=== PATIENT | male | born 1975 | race Caucasian/White ===

== ENCOUNTER → 2017-04-17 | Outpatient (CLI) | payer OTHER ==
--- NOTE | 2017-04-17 10:39 | MR ---
EXAMINATION TYPE: MR knee LT wo con DATE OF EXAM: 04/17/2017 COMPARISON: NONE HISTORY: Inner pain in left knee / Derangement TECHNIQUE: Multiplanar, multisequence imaging of the left knee is performed without IV contrast. FINDINGS: MEDIAL MENISCUS: There is a complex, predominantly radial tear of the posterior horn of the medial me niscus contiguous with the inferior articular surface with associated para meniscal cyst measuring 4 x 4 mm an adjacent cystic multiloculated areas either representing extension of the cyst or ganglion cysts. These measure 0.7 x 0.6 x 1.3 cm. The tear extends minimally into the meniscal body. No extens ion into the anterior horn or root. LATERAL MENISCUS: Anterior and posterior horns are intact without tear. CRUCIATE LIGAMENTS: The anterior and posterior cruciate ligaments are intact and unremarkable. COLLATERAL LIGAMENTS: The medial collateral ligament and lateral collateral ligament complex are inta ct. I signal is seen both deep and superficial to the medial collateral ligament without any disconti nuity in the medial collateral ligament suggestive of MCL bursitis. No abnormal signal within the MCL . EXTENSOR MECHANISM: Visualized quadriceps and patellar tendons are intact. EFFUSION: No significant suprapatellar joint effusion. POPLITEAL CYST: There is small amount of fluid is seen within the popliteal fossa between the medial head of the gastric anemias and semimembranosus relating to the tiny unilocular popliteal cyst. CARTILAGE: Heterogeneity seen within the patellar cartilage with focal fissure inferiorly at the molina llar apex and medial patellar facet and small area of undermining the lateral facet. No bone marrow e nalini or abnormal bone marrow signal is seen. BONE MARROW SIGNAL: No focal abnormal marrow signal is appreciated. IMPRESSION: 1. Complex, predominantly radial tear of the posterior horn of the medial meniscus with extent into t he meniscal body and adjacent parameniscal cyst measuring 4 x 4 millimeters. Directly adjacent to the parameniscal cyst another cystic fluid collection is seen measuring 0.7 x 0.6 x 1.3 cm that could re present to a ganglion cyst or extension of the para meniscal cyst. 2. Findings compatible with MCL bursitis without MCL tear. 3. Patellofemoral chondrosis with multifocal fissuring and single area of undermining. No abnormal edwardo ne marrow signal or osseous subchondral cysts.
== END | disposition home or self-care (01) ==
LOC: RADMRIMAIN 06:34
PROVIDERS: ATTEND Family Medicine
DX: M25.562 Pain in left knee (principal); M23.203 Derangement of unspecified medial meniscus due to old tear or injury, right knee; M94.20 Chondromalacia, unspecified site

== ENCOUNTER → 2018-01-09 | Outpatient (CLI) | payer OTHER ==
--- NOTE | 2018-01-09 16:28 | XR ---
EXAMINATION TYPE: XR sinus DATE OF EXAM: 01/09/2018 COMPARISON: None HISTORY: Chronic sinus congestion TECHNIQUE: 4 view sinuses FINDINGS: Paranasal sinuses are evaluated. The left frontal sinus is aplastic. The right frontal sinu s is severely hypoplastic. Mucosal thickening is suspected within the left maxillary sinus. Remaining paranasal sinuses appear c lear. The sella is unremarkable. IMPRESSION: 1. Retention cyst or mucosal thickening through the left maxillary sinus. 2. 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
== END | disposition home or self-care (01) ==
LOC: RADXRMAIN 12:56
PROVIDERS: ATTEND Family Medicine
DX: Q30.1 Agenesis and underdevelopment of nose (principal)
CPT/HCPCS: 70220

== ENCOUNTER 2018-05-29 20:05 | Observation (INO) | payer OTHER ==
[2018-05-29] MEDS ORDERED: MECLIZINE 12.5 MG TAB PO STA (20:49)
[2018-05-29] MEDS ORDERED: SODIUM CHLORIDE 0.9% 1,000 ML IV STA (20:49)
--- NOTE | 2018-05-29 21:00 | ED ---
Dizziness HPI - General Chief Complaint: Dizziness Stated Complaint: Dizzziness Time Seen by Provider: 05/29/18 20:33 Source: patient, EMS, RN notes reviewed Mode of arrival: EMS Limitations: no limitations - History of Present Illness Initial Comments: Is a 42-year-old male presents with complaints of dizziness she's been having is related or profound episode today with burning in his ear lightheadedness he also had some lightheadedness associated with the dizziness does get worse with movement of his head and eyes. He denies any recent cold or flu symptoms. He also has some chest tightness and pain to the distal volar aspect of his left wrist which was brief. No other complaints this time. He's not sure if it was associated with his normal anxiety issues or something else. He does not have any history of heart or lung problems he is aware of. MD Complaint: dizziness, other - Related Data Home Medications Medication Instructions Recorded Confirmed Diazepam [Valium] 1 - 2 tab PO Q12HR PRN 05/29/18 05/29/18 Vitmain Pack (Unknown) 1 pack PO DAILY 05/29/18 Allergies Allergy/AdvReac Type Severity Reaction Status Date / Time topiramate [From Topamax] Allergy Unknown Verified 05/29/18 20:08 Review of Systems ROS Statement: Those systems with pertinent positive or pertinent negative responses have been documented in the HPI. ROS Other: All systems not noted in ROS Statement are negative. Past Medical History Past Medical History: No Reported History Additional Past Medical History / Comment(s): chews tobacco History of Any Multi-Drug Resistant Organisms: None Reported Past Surgical History: Orthopedic Surgery Additional Past Surgical History / Comment(s): neck fusion, left knee surgery Past Psychological History: No Psychological Hx Reported Smoking Status: Never smoker Past Alcohol Use History: Occasional Past Drug Use History: None Reported General Exam - General Exam Comments Initial Comments: Is a well-developed well-nourished awake alert oriented 3 male Limitations: no limitations General appearance: alert, anxious Head exam: Present: atraumatic, normocephalic, normal inspection Eye exam: Present: normal appearance, PERRL, EOMI. Absent: scleral icterus, conjunctival injection, periorbital swelling ENT exam: Present: normal exam, mucous membranes moist Neck exam: Present: normal inspection, full ROM, other (No stridor JVD or bruits). Absent: tenderness, meningismus, lymphadenopathy Respiratory exam: Present: normal lung sounds bilaterally. Absent: respiratory distress, wheezes, rales, rhonchi, stridor Cardiovascular Exam: Present: regular rate, normal rhythm, normal heart sounds. Absent: systolic murmur, diastolic murmur, rubs, gallop, clicks GI/Abdominal exam: Present: soft, normal bowel sounds. Absent: distended, tenderness, guarding, rebound, rigid Rectal exam: Present: deferred Extremities exam: Present: normal inspection, full ROM, normal capillary refill. Absent: tenderness, pedal edema, joint swelling, calf tenderness Back exam: Present: normal inspection Neurological exam: Present: alert, oriented X3, CN II-XII intact, other (Producible dizziness to head turning and eye movement. No nystagmus is noted this time) Psychiatric exam: Present: normal affect, normal mood Skin exam: Present: warm, dry, intact, normal color. Absent: rash Course Vital Signs 05/29/18 05/29/18 05/29/18 20:08 20:27 21:00 Temperature 98.4 F Pulse Rate 84 81 84 Respiratory 18 18 18 Rate Blood Pressure 164/108 154/93 141/87 O2 Sat by Pulse 96 97 97 Oximetry 05/29/18 22:53 Temperature Pulse Rate 69 Respiratory 18 Rate Blood Pressure 139/77 O2 Sat by Pulse 98 Oximetry - Reevaluation(s) Reevaluation #1: 05/29/18 23:36 Reevaluation the patient reveals his dizziness has improved but he still has we describes as anterior chest pressure or tightness with some pain down his left wrist. Distal states she has some discomfort to his left jaw. Thus far the lab work is unremarkable EKG is demonstrating no acute ST-T wave changes. Patient did get some relief after nitroglycerin. I did have a long discussion with him he will be admitted for further evaluation today. On further questioning he does state he does get intermittent episodes of tightness around his chest up into his neck and jaw. EKG Findings - EKG Results: EKG: interpreted by JUD, sinus rhythm (Sinus rhythm rate of 86 WA interval 162 QRS duration 90 QT since QTC 366/437 evidence a left exodeviation no acute changes this is consistent with the EKG submitted by EMS.) Medical Decision Making - Medical Decision Making Patient did have improvement of his chest discomfort after oral nitroglycerin. He does relate that he's had episodes of chest pain and pain up into his neck and jaw. He has minimal risk factors at this time though the presentation is consistent with ACS. I did discuss case with him and with Dr. Amaral the patient will be admitted for evaluation of chest pain. The dizziness seems to have improved this is likely secondary to benign positional vertigo. - Lab Data Result diagrams: 05/29/18 20:15 05/29/18 20:15 Lab Results 05/29/18 05/29/18 05/29/18 Range/Units 20:15 20:15 20:15 WBC 7.5 (3.8-10.6) k/uL RBC 5.08 (4.30-5.90) m/uL Hgb 15.9 (13.0-17.5) gm/dL Hct 47.6 (39.0-53.0) % MCV 93.6 (80.0-100.0) fL MCH 31.2 (25.0-35.0) pg MCHC 33.4 (31.0-37.0) g/dL RDW 12.3 (11.5-15.5) % Plt Count 336 (150-450) k/uL Neutrophils % 53 % Lymphocytes % 33 % Monocytes % 8 % Eosinophils % 3 % Basophils % 1 % Neutrophils # 4.0 (1.3-7.7) k/uL Lymphocytes # 2.5 (1.0-4.8) k/uL Monocytes # 0.6 (0-1.0) k/uL Eosinophils # 0.2 (0-0.7) k/uL Basophils # 0.1 (0-0.2) k/uL Sodium 138 (137-145) mmol/L Potassium 4.6 (3.5-5.1) mmol/L Chloride 105 (98-107) mmol/L Carbon Dioxide 23 (22-30) mmol/L Anion Gap 10 mmol/L BUN 9 (9-20) mg/dL Creatinine 1.00 (0.66-1.25) mg/dL Est GFR (CKD-EPI)AfAm >90 (>60 ml/min/1.73 sqM) Est GFR (CKD-EPI)NonAf >90 (>60 ml/min/1.73 sqM) Glucose 105 H (74-99) mg/dL Calcium 10.0 (8.4-10.2) mg/dL Magnesium 2.1 (1.6-2.3) mg/dL Total Bilirubin 0.9 (0.2-1.3) mg/dL AST 49 (17-59) U/L ALT 104 H (21-72) U/L Alkaline Phosphatase 57 (38-126) U/L Total Creatine Kinase 111 (55-170) U/L CK-MB (CK-2) 0.4 (0.0-2.4) ng/mL CK-MB (CK-2) Rel Index 0.4 Troponin I <0.012 (0.000-0.034) ng/mL Total Protein 7.4 (6.3-8.2) g/dL Albumin 4.6 (3.5-5.0) g/dL - Radiology Data Radiology results: report reviewed (I did review the imaging and report no acute findings), image reviewed Critical Care Time Critical Care Time: Yes Critical Care Time: 31 minutes of critical care time which includes initial presentation with history physical labs x-rays several reevaluation the patient to responsive therapy. Reevaluation the patient after chest pain reported in evaluation after nitroglycerin. Discussion the patient regarding the findings discussed with Dr. Amaral regarding findings admission orders and documentation of the above Disposition Clinical Impression: Acute coronary syndrome, Chest pain, Benign positional vertigo Disposition: ADMITTED IP TO THIS [facility] Condition: Fair Referrals: Yaniv Bloom DO [Primary Care Provider] - 1-2 days
[2018-05-29 21:01] LABS: Basophils # (A) 0.1 k/uL (0-0.2); Basophils % (A) 1 %; Eosinophils # (A) 0.2 k/uL (0-0.7); Eosinophils % (A) 3 %; HCT 47.6 % (39.0-53.0); HGB 15.9 gm/dL (13.0-17.5); Lymphocytes # (A) 2.5 k/uL (1.0-4.8); Lymphocytes % (A) 33 %; MCH 31.2 pg (25.0-35.0); MCHC 33.4 g/dL (31.0-37.0); MCV 93.6 fL (80.0-100.0); Mean Platelet Volume 7.3; Monocytes # (A) 0.6 k/uL (0-1.0); Monocytes % (A) 8 %; Neutrophils % (A) 53 %; Platelet Count 336 k/uL (150-450); RBC 5.08 m/uL (4.30-5.90); RDW 12.3 % (11.5-15.5); WBC 7.5 k/uL (3.8-10.6)
[2018-05-29 21:11] LABS: ALT 104 U/L (21-72); AST 49 U/L (17-59); Albumin 4.6 g/dL (3.5-5.0); Alkaline Phosphatase 57 U/L (38-126); Anion Gap 10 mmol/L; Blood Urea Nitrogen 9 mg/dL (9-20); Carbon Dioxide 23 mmol/L (22-30); Chloride 105 mmol/L (98-107); Glucose 105 mg/dL (74-99); Magnesium 2.1 mg/dL (1.6-2.3); Potassium 4.6 mmol/L (3.5-5.1); Sodium 138 mmol/L (137-145); Total Bilirubin 0.9 mg/dL (0.2-1.3); Total Protein 7.4 g/dL (6.3-8.2)
[2018-05-29 21:14] LABS: Creatine Kinase 111 U/L (55-170)
[2018-05-29 21:26] LABS: Creatine Kinase MB 0.4 ng/mL (0.0-2.4); Troponin I <0.012 ng/mL (0.000-0.034)
--- NOTE | 2018-05-29 22:44 | CT ---
EXAM: CT Head Without Intravenous Contrast CLINICAL HISTORY: Pain TECHNIQUE: Axial computed tomography images of the head/brain without intravenous contrast. CTDI is 0.085, 0.085, 49.1 mGy and DLP is 1160.4 mGy-cm. This CT exam was performed using one or more of the following dose reduction techniques: automated exposure control, adjustment of the mA and/or kV according to patient size, and/or use of iterative reconstruction technique. COMPARISON: No relevant prior studies available. FINDINGS: Brain: Unremarkable. No acute hemorrhage, large hypodensity, or significant mass effect. Ventricles: Unremarkable. No ventriculomegaly. Bones/joints: Unremarkable. No acute fracture. Soft tissues: Unremarkable. Sinuses: Unremarkable. Mastoid air cells: Unremarkable. IMPRESSION: No acute intracranial abnormality.
[2018-05-29] MEDS ORDERED: NITROGLYCERIN SL TABS 0.4 MG TAB SUBLINGUAL STA (22:48)
[2018-05-29] MEDS ORDERED: NITROGLYCERIN SL TABS 0.4 MG TAB SUBLINGUAL PRN (23:45)
[2018-05-29] MEDS ORDERED: HEPARIN SODIUM,PORCINE 5,000 UNIT/ML 1 ML VIAL IV ONE (23:45)
[2018-05-29] MEDS ORDERED: SODIUM CHLORIDE 0.9% 1,000 ML IV SCH (23:45)
[2018-05-29] MEDS ORDERED: HEPARIN SOD,PORK IN 0.45% NACL 25,000 UNIT in 0.45% NACL 1 250ML.BAG IV SCH (23:45)
[2018-05-29] MEDS ORDERED: MECLIZINE 12.5 MG TAB PO PRN (23:47)
[2018-05-29] MEDS ORDERED: ACETAMINOPHEN TAB 325 MG TAB PO PRN (23:48)
--- NOTE | 2018-05-30 00:49 | P.HPIM ---
History of Present Illness H&P Date: 05/29/18 Chief Complaint: dizziness 42-year-old male with a past medical history of anxiety presents to the ER via private vehicle with complaints of dizziness increasing fatigue intermittently for the last week. Today in particular the patient reported a profound episode today with burning in his ear with lightheadedness and nausea, he also had some lightheadedness associated with the dizziness does get worse with movement of his head and eyes. He denies any recent cold or flu symptoms, denies any room spinning sensation. He also has some mild chest tightness with radiation into his neck and pain to the distal volar aspect of his left wrist which was brief. Patient reports a history of neck surgery and has had cervical fusions and has ongoing issues with his neck due to muscle spasms. No other complaints this time. He's not sure if it was associated with his normal anxiety issues or possible panic attack or something else. He does not have any history of heart or lung problems he is aware of, patient denies any first- degree relatives with a history of premature coronary disease. The patient is a former smoker and continues to chew tobacco In the ER the patient had a conference of workup, admission labs were otherwise unremarkable specifically his troponin was less than 0.012, EKG showed sinus mechanism without any suggestive of acute ischemia. CT of the head was done was negative for any acute intracranial pathology Patient was recommended for admission to rule out ACS Review of Systems Pertinent positives per HPI, all other of systems otherwise negative Past Medical History Past Medical History: No Reported History Additional Past Medical History / Comment(s): chews tobacco History of Any Multi-Drug Resistant Organisms: None Reported Past Surgical History: Orthopedic Surgery Additional Past Surgical History / Comment(s): neck fusion, left knee surgery Past Psychological History: No Psychological Hx Reported Smoking Status: Never smoker Past Alcohol Use History: Occasional Past Drug Use History: None Reported Medications and Allergies Home Medications Medication Instructions Recorded Confirmed Type Diazepam [Valium] 1 - 2 tab PO Q12HR PRN 05/29/18 05/29/18 History Vitmain Pack (Unknown) 1 pack PO DAILY 05/29/18 History Allergies Allergy/AdvReac Type Severity Reaction Status Date / Time topiramate [From Topamax] Allergy Unknown Verified 05/29/18 20:08 Physical Exam Vitals: Vital Signs Temp Pulse Resp BP Pulse Ox 03/22/19 22:53 69 18 139/77 98 05/29/18 21:00 84 18 141/87 97 05/29/18 20:27 81 18 154/93 97 05/29/18 20:08 98.4 F 84 18 164/108 96 Intake and Output 05/29/18 05/29/18 05/30/18 14:59 22:59 06:59 Other: Weight 117.208 kg Constitutional: No acute distress, conversant, pleasant Eyes: Anicteric sclerae, moist conjunctiva, no lid-lag, PERRLA ENMT: NC/AT,Oropharynx clear, no erythema, exudates Neck:Supple, FROM, no masses, or JVD, No carotid bruits; No thyromegaly Lungs: Clear to auscultation, Clear to percussion, Normal respiratory effort, no accessory muscle use Cardiovascular: Heart regular in rate and rhythm, No murmurs, gallops, or rubs no peripheral edema Abdominal: Soft Nontender, nom distended, no guarding, no rebound or rigidity, Normoactive bowel sounds No hepatomegaly, No splenomegaly, No palpable mass No abdominal wall hernia noted Skin: Normal temperature, tone, texture, turgor, No induration No subcutaneous nodules, No rash, lesions, No ulcers Extremities:No digital cyanosis No clubbing, Pedal pulses intact and symmetrical Radial pulses intact and symmetrical Normal gait and station, No calf tenderness Psychiatric: Alert and oriented to person, place and time, Appropriate affect Intact judgement Neuro: Muscles Strength 5/5 in all 4 extremities, Sensation to light touch sneha ssly present throughout, Cranial nerves II-XII grossly intact. No focal sensory deficits, negative [place] Results CBC & Chem 7: 05/29/18 20:15 05/29/18 20:15 Labs: Abnormal Lab Results - Last 24 Hours (Table) 05/29/18 Range/Units 20:15 Glucose 105 H (74-99) mg/dL ALT 104 H (21-72) U/L Assessment and Plan (1) Atypical chest pain Current Visit: Yes Status: Acute Code(s): R07.89 - OTHER CHEST PAIN SNOMED Code(s): 749228325 (2) Dizziness Current Visit: Yes Status: Acute Code(s): R42 - DIZZINESS AND GIDDINESS SNOMED Code(s): 264193311 (3) Elevated blood pressure reading without diagnosis of hypertension Current Visit: Yes Status: Acute Code(s): R03.0 - ELEVATED BLOOD-PRESSURE READING, W/O DIAGNOSIS OF HTN SNOMED Code(s): 500355126 (4) Former smoker Current Visit: Yes Status: Acute Code(s): Z87.891 - PERSONAL HISTORY OF NICOTINE DEPENDENCE SNOMED Code(s): 6268557 (5) Anxiety Current Visit: Yes Status: Acute Code(s): F41.9 - ANXIETY DISORDER, UNSPECIFIED SNOMED Code(s): 25738464 Plan: The patient is placed in observation anticipate a less than 2 midnight stay after presenting with atypical chest pain and dizziness, workup so far has been negative. EKG indicated sinus mechanism without any acute ischemia, and troponin was less than 0.012. We'll continue to trend his troponins every 6 hours 2. the patient was started on routine chest pain orders and received aspirin in the ED and was started on IV heparin And his chest discomfort was diminished after receiving nitroglycerin. We'll plan to continue these orders pending cardiology consultation. As mentioned CT of the head was negative for any acute intracranial pathology, dizziness possibly related to vertical we'll continue Antivert. We'll also obtain a lipid panel, chest x-ray and continue to monitor his clinical course. CODE STATUS: Full code discuss plan of care with : Patient anticipated discharge: 1-2 days
[2018-05-30 01:00] VITALS: BMI 34.0
[2018-05-30] MEDS: NITROGLYCERIN OINT 1 INCH/GM PACKET TOPICAL SCH ×3 (01:13→11:27)
--- NOTE | 2018-05-30 06:46 | XR ---
EXAMINATION TYPE: XR chest 2V DATE OF EXAM: 05/30/2018 HISTORY: chest pain. REFERENCE: NONE. FINDINGS: There has been a previous ACDF of the lower cervical spine. The lungs are clear. Pleural spaces are clear. The heart is not enlarged. IMPRESSION: NO ACTIVE CARDIOPULMONARY ABNORMALITY.
[2018-05-30 07:16] LABS: Cholesterol 256 mg/dL (<200); HDL Cholesterol 35 mg/dL (40-60)
[2018-05-30 07:23] LABS: Triglycerides 781 mg/dL (<150)
[2018-05-30] MEDS ORDERED: ASPIRIN 325 MG TAB PO SCH (09:00)
[2018-05-30] MEDS ORDERED: FENOFIBRATE 54 MG TAB PO SCH (09:15)
[2018-05-30 09:28] VITALS: PULSE 73; TEMP 98
[2018-05-30 12:04] VITALS: BP 140/76; RESP 18
--- NOTE | 2018-05-30 15:25 | P.DS ---
Providers Date of admission: 05/29/18 23:48 Expected date of discharge: 05/30/18 Attending physician: Bk Amaral MD Consults: 05/29/18 23:45 Consult Physician Urgent Consulting Provider: Dashawn Sorto Consult Reason/Comments: Chest pain Do you want consulting provider notified?: Yes Primary care physician: [facility] Course: The patient is a 42-year-old male with a PMH of anxiety who presented to the ED for episodes of episodes of chest pressure, shortness of breath, nausea, dry mouth, and a sense of impending doom. The patient notes that he has severed with anxiety for many decades and over the past few years believes that he might have developed panic attacks. He notes that the episode prior to his presentation was particularly severe and he felt that it warranted getting an evaluation. In the ED, the patient underwent a comprehensive workup with troponins less than 0.012, with EKG showing normal sinus rhythm with no ischemic changes. CT head was unremarkable and the patient was admitted under observation for cardiology evaluation. The patient was evaluated by cardiology who recommended that the patient's symptoms are likely secondary to his panic attacks and that he is cleared for discharge with a follow-up with outpatient PCP and cardiology clinic. Of note, the patient was noted to have significantly elevated triglycerides and was started on fenofibrate. Furthermore, the patient was also advised to undergo a fasting A1c and a repeat lipid panel testing as outpatient. Physical Examination General: Non-toxic, in no acute distress, appears stated age, normal weight HEENT: NC/AT, anicteric sclerae, moist conjunctiva, no lid-lag, PERRLA Cardiovascular: S1/S2 wnl, no murmurs, rubs, or gallops Lungs: Clear to auscultation, normal respiratory effort, no accessory muscle use Abdominal: Soft, non-tender, non-distended, no guarding, rebound, or rigidity Skin: Warm, dry Extremities: No edema or contractures Psychiatric: Alert and oriented to person, place and time, appropriate affect Neuro: CN II-XII grossly intact, Strength 5/5 in all 4 extremities, Speech intact, Sensation to light touch grossly intact throughout Discharge diagnosis: Panic attack disorder; Hypertriglyceridemia A total of 40 minutes of time were spent preparing this complex discharge [facility]. Pertinent Studies: As per HPI Procedures: As per HPI Patient Condition at Discharge: Fair Plan - Discharge Summary Discharge Rx Participant: No New Discharge Prescriptions: New Fenofibrate [Lofibra] 54 mg PO DAILY #30 tab Continue Vitmain Pack (Unknown) 1 pack PO DAILY Diazepam [Valium] 1 - 2 tab PO Q12HR PRN PRN Reason: Anxiety Discharge Medication List Diazepam [Valium] 1 - 2 tab PO Q12HR PRN 05/29/18 [History] Vitmain Pack (Unknown) 1 pack PO DAILY 05/29/18 [History] Fenofibrate [Lofibra] 54 mg PO DAILY #30 tab 05/30/18 [Rx] Follow up Appointment(s)/Referral(s): Yaniv Bloom DO [Primary Care Provider] - 1-2 days Patient Instructions/Handouts: Angina (DC) Discharge Disposition: HOME SELF-CARE
--- NOTE | 2018-05-30 17:41 | CONS ---
CONSULTATION Lorenzo Hays is a 42-year-old gentleman with a history of some alcohol binge drinking of 6 to 7 beers every 2-3 days. He also has had a previous cervical spine surgery. He was watching some movies and then he felt some tingling in the left wrist area, then had some tightness in the chest and came into the hospital. The patient feels he felt very panicky and he had some pain related to his cervical spine surgery issues as well and some dizziness and felt anxious with it. He has no further pain. He is resting comfortably. His troponins are normal. EKG is unremarkable. He is resting comfortably without symptoms. His dizziness has also resolved and his tingling in the left wrist area has resolved. His symptoms were very atypical and do not suggest any angina. PAST MEDICAL HISTORY: Remarkable for cervical spine surgery, left knee surgery. He has no hypertension or diabetes. MEDICATIONS: He is takes occasionally Valium for his neck discomfort. ALLERGIES: HE IS ALLERGIC TO . EXAMINATION: On examination blood pressure is 130/80, pulse rate is 80 per minute and regular. HEENT unremarkable. Fundus was not examined by me. Neck is supple. There is no JVD. I do not hear a carotid bruit. Heart exam reveals S1, S2 heard normally. No rub, murmur or gallop lungs are clear. Abdomen is soft, nontender. Lower extremity with normal pulses. No edema. Central nervous system is normal. EKG revealed a sinus mechanism, no acute changes. LABORATORY DATA: Suggests that troponins are normal. Triglycerides are quite high. This could be related to alcoholism or could also be related to any blood sugar issues, but the patient claims that he is not a diabetic. IMPRESSION: 1. Atypical chest pain. 2. Hypercholesterolemia. 3. History of cervical spine surgery. RECOMMENDATION: I am recommending fenofibrate 50 mg daily. Advised the patient regarding alcohol cessation. Advised that he should have a hemoglobin A1C also as an outpatient. When he is feeling better and more stable, we will do a stress test as outpatient. Advised to call me and we will try and see him in next to 2-3 weeks, but to call me sooner if he has a question, concern, problem or symptoms. Patient can be discharged today. Thank you very much for the consult. MMNAREN / IJN: [id number] /
[2018-05-30 22:40] LABS: Hemoglobin A1C 5.7 % (4.0-6.0)
== END 2018-05-30 13:09 | disposition home or self-care (01) ==
LOC: EC 20:05 → 3SCARD 23:48
PROVIDERS: ADMIT Family Medicine; ATTEND Family Medicine
DX: F41.0 Panic disorder [episodic paroxysmal anxiety] (principal); E78.1 Pure hyperglyceridemia; E78.00 Pure hypercholesterolemia, unspecified; R03.0 Elevated blood-pressure reading, without diagnosis of hypertension; M62.838 Other muscle spasm; Z98.1 Arthrodesis status; Z87.891 Personal history of nicotine dependence; F17.220 Nicotine dependence, chewing tobacco, uncomplicated; Z88.8 Allergy status to other drugs, medicaments and biological substances
CPT/HCPCS: 96366; 96376; 96361; 96365; 99291; 36415; 93005; 80061; 80053; 82550; 82553; 83735; 82947; 84484 ×2; 85025; 85730; 83036; 71046; 70450; G0378 ×2; J1644 ×2

== ENCOUNTER 2018-11-26 18:57 | Emergency (ER) | payer OTHER ==
[2018-11-26 19:04] VITALS: RESP 18; TEMP 98
[2018-11-26] MEDS ORDERED: SODIUM CHLORIDE 0.9% 1,000 ML IV STA (19:41)
[2018-11-26] MEDS ORDERED: diphenhydrAMINE 50 MG/ML 1 ML VIAL IVP STA (19:41)
[2018-11-26] MEDS ORDERED: DEXAMETHASONE SOD PHOSPHATE 10 MG/ML 1 ML VIAL IV STA (19:41)
[2018-11-26] MEDS ORDERED: METOCLOPRAMIDE 5 MG/ML 2 ML VIAL IVP STA (19:41)
[2018-11-26] MEDS ORDERED: MAGNESIUM SULFATE-D5W PMX 1 GM in DEXTROSE/WATER 1 100ML.BAG IVPB ONE (19:42)
[2018-11-26 19:58] LABS: Basophils # (A) 0.1 k/uL (0-0.2); Basophils % (A) 1 %; Eosinophils # (A) 0.2 k/uL (0-0.7); Eosinophils % (A) 2 %; HCT 46.5 % (39.0-53.0); HGB 15.8 gm/dL (13.0-17.5); Lymphocytes # (A) 2.5 k/uL (1.0-4.8); Lymphocytes % (A) 22 %; MCH 31.1 pg (25.0-35.0); MCHC 34.1 g/dL (31.0-37.0); MCV 91.3 fL (80.0-100.0); Mean Platelet Volume 7.1; Monocytes # (A) 0.7 k/uL (0-1.0); Monocytes % (A) 6 %; Neutrophils # (A) 7.8 k/uL (1.3-7.7); Neutrophils % (A) 69 %; Platelet Count 368 k/uL (150-450); RBC 5.09 m/uL (4.30-5.90); RDW 12.3 % (11.5-15.5); WBC 11.3 k/uL (3.8-10.6)
[2018-11-26 20:00] LABS: ALT 48 U/L (21-72); AST 28 U/L (17-59); African American GFR (CKD) >90 (>60 ml/min/1.73 sqM); Albumin 4.7 g/dL (3.5-5.0); Alkaline Phosphatase 55 U/L (38-126); Anion Gap 12 mmol/L; Blood Urea Nitrogen 11 mg/dL (9-20); Calcium 9.8 mg/dL (8.4-10.2); Carbon Dioxide 24 mmol/L (22-30); Chloride 102 mmol/L (98-107); Glucose 184 mg/dL (74-99); Sodium 138 mmol/L (137-145); Total Protein 7.3 g/dL (6.3-8.2)
--- NOTE | 2018-11-26 20:07 | CT ---
EXAMINATION TYPE: CT brain wo con DATE OF EXAM: 11/26/2018 COMPARISON: 05/29/2018 HISTORY: HEADACHE FELT IN FRONTAL REGION CT DLP: 1141.4 mGycm. Automated Exposure Control for Dose Reduction was Utilized. TECHNIQUE: CT scan of the head is performed without contrast. FINDINGS: Ventricles and sulci appear normal. There is no mass effect nor midline shift. There is no sign of intracranial hemorrhage. The calvarium is intact. IMPRESSION: Normal head CT scan. No change.
[2018-11-26] MEDS ORDERED: ONDANSETRON 4 MG ODT STARTER PACK 2 TAB BTL PO STA (20:50)
--- NOTE | 2018-11-26 20:50 | ED ---
General Adult HPI - General Chief complaint: Dizziness Stated complaint: Headache, dizzy Time Seen by Provider: 11/26/18 19:05 Source: patient Mode of arrival: ambulatory Limitations: no limitations - History of Present Illness Initial comments: The patient is a 43-year-old male with past medical history of chronic back pain who presents emergency Department with reported headache and nausea. The patient reports that he awoke this morning with a frontal headache. It is described as an 8 out of 10 pressure sensation. It is not the worse headache of his life. States he will chronically have headaches because of his neck pain. States that this headache feels different and is in a different location. Denies that it was sudden onset or maximal intensity. He did not take any medications for his symptoms. Denies any associated cold-like symptoms. No nasal congestion, cough or ear pain. Denies photophobia. No midline neck pain. Admits to his chronic left-sided neck pain. No recent blunt head trauma or chiropractic manipulations. No visual changes. No unilateral numbness or weakness. No photophobia. The patient reports that he associated nausea with 2 episodes of vomiting. After the vomiting he was able to hold down food without difficulty. He still remains nauseated though. He reports to a presyncopal sensation. No vertiginous symptoms. Denies any hearing changes. No report of confusion or slurred speech. There are no other alleviating, Percepting or modifying factors - Related Data Home Medications Medication Instructions Recorded Confirmed Multivitamins, Thera [Multivitamin 1 tab PO DAILY 11/26/18 11/26/18 (formulary)] Allergies Allergy/AdvReac Type Severity Reaction Status Date / Time topiramate [From Topamax] Allergy Unknown Verified 11/26/18 19:12 Review of Systems ROS Statement: Those systems with pertinent positive or pertinent negative responses have been documented in the HPI. ROS Other: All systems not noted in ROS Statement are negative. Past Medical History Past Medical History: No Reported History Additional Past Medical History / Comment(s): chews tobacco History of Any Multi-Drug Resistant Organisms: None Reported Past Surgical History: Orthopedic Surgery Additional Past Surgical History / Comment(s): neck fusion, left knee surgery Past Anesthesia/Blood Transfusion Reactions: No Reported Reaction Past Psychological History: Anxiety Smoking Status: Current some day smoker Past Alcohol Use History: Occasional Past Drug Use History: Marijuana General Exam Limitations: no limitations General appearance: alert, in no apparent distress Head exam: Present: atraumatic, normocephalic, normal inspection Eye exam: Present: normal appearance, PERRL, EOMI. Absent: scleral icterus, conjunctival injection, periorbital swelling ENT exam: Present: normal exam, mucous membranes moist Neck exam: Present: normal inspection. Absent: tenderness, meningismus, lymphadenopathy Respiratory exam: Present: normal lung sounds bilaterally. Absent: respiratory distress, wheezes, rales, rhonchi, stridor Cardiovascular Exam: Present: normal rhythm, tachycardia, normal heart sounds. Absent: systolic murmur, diastolic murmur, rubs, gallop, clicks GI/Abdominal exam: Present: soft, normal bowel sounds. Absent: distended, tenderness, guarding, rebound, rigid Extremities exam: Present: normal inspection, full ROM, normal capillary refill. Absent: tenderness, pedal edema, joint swelling, calf tenderness Back exam: Present: normal inspection Neurological exam: Present: alert, oriented X3, CN II-XII intact, other (finger to nose symmetric bilaterally. Negative pronator drift. No ataxia with ambulation) Psychiatric exam: Present: normal affect, normal mood Skin exam: Present: warm, dry, intact, normal color. Absent: rash Course Vital Signs 11/26/18 11/26/18 19:00 21:17 Temperature 98 F 98 F Pulse Rate 110 H 82 Respiratory 18 18 Rate Blood Pressure 128/82 127/74 O2 Sat by Pulse 98 96 Oximetry EKG Findings - EKG Comments: EKG Findings:: EKG demonstrates a normal sinus rhythm with a ventricular rate of 97. CO interval 160. QRS 80. QTC 449. There are no acute ST segment eleva tions or depressions concerning for ischemic changes Medical Decision Making - Medical Decision Making Upon arrival the patient is placed into room 5. He is hooked up to continuous pulse ox and cardiac monitoring. A thorough history and physical exam was performed. A 12-lead EKG was performed which demonstrates a sinus rhythm. Laboratory studies were conducted and the patient was sent for a CT of his brain. Upon return of the results I did discuss them with the patient. White blood cell count is 11.3. Glucose 184. CT of the patient's brain demonstrates no acute findings. The patient was given 1 g of magnesium, 25 mg of Benadryl, 1 0 mg of Reglan and 10 mg of Decadron. I did go and reevaluate the patient he states that his nausea has improved. He still has a 2 out of 10 headache however he does believe it is because he is hungry and wants to eat. I did offer the patient something by mouth however he states he wants to go home. I discussed diagnoses, differential and treatment options. The patient is to follow-up with his primary care physician within 2-4 days. If he has any new or worsening symptoms he is to return to the emergency room. The patient was discharged in stable condition - Lab Data Result diagrams: 11/26/18 19:22 11/26/18 19: Lab Results 11/26/18 11/26/18 Range/Units : 19: WBC 11.3 H (3.8-10.6) k/uL RBC 5.09 (4.30-5.90) m/uL Hgb 15.8 (13.0-17.5) gm/dL Hct 46.5 (39.0-53.0) % MCV 91.3 (80.0-100.0) fL MCH 31.1 (25.0-35.0) pg MCHC 34.1 (31.0-37.0) g/dL RDW 12.3 (11.5-15.5) % Plt Count 368 (150-450) k/uL Neutrophils % 69 % Lymphocytes % 22 % Monocytes % 6 % Eosinophils % 2 % Basophils % 1 % Neutrophils # 7.8 H (1.3-7.7) k/uL Lymphocytes # 2.5 (1.0-4.8) k/uL Monocytes # 0.7 (0-1.0) k/uL Eosinophils # 0.2 (0-0.7) k/uL Basophils # 0.1 (0-0.2) k/uL Sodium 138 (137-145) mmol/L Potassium 4.0 (3.5-5.1) mmol/L Chloride 102 (98-107) mmol/L Carbon Dioxide 24 (22-30) mmol/L Anion Gap 12 mmol/L BUN 11 (9-20) mg/dL Creatinine 0.67 (0.66-1.25) mg/dL Est GFR (CKD-EPI)AfAm >90 (>60 ml/min/1.73 sqM) Est GFR (CKD-EPI)NonAf >90 (>60 ml/min/1.73 sqM) Glucose 184 H (74-99) mg/dL Calcium 9.8 (8.4-10.2) mg/dL Total Bilirubin 1.0 (0.2-1.3) mg/dL AST 28 (17-59) U/L ALT 48 (21-72) U/L Alkaline Phosphatase 55 (38-126) U/L Total Protein 7.3 (6.3-8.2) g/dL Albumin 4.7 (3.5-5.0) g/dL Disposition Clinical Impression: Headache, Nausea Disposition: HOME SELF-CARE Condition: Stable Instructions (If sedation given, give patient instructions): Acute Headache (ED) Additional Instructions: Please follow-up with your primary care doctor within 2-4 days. Return to the emergency room for any new or worsening symptoms Is patient prescribed a controlled substance at d/c from ED?: No Referrals: None,Stated [Primary Care Provider] - 1-2 days Time of Disposition: 20:49
[2018-11-26 21:18] VITALS: BP 127/74; PULSE 82
== END 2018-11-26 21:17 | disposition home or self-care (01) ==
LOC: EC 18:57
DX: R51 Headache (principal); R11.0 Nausea; R42 Dizziness and giddiness; G89.29 Other chronic pain; M54.2 Cervicalgia; F17.200 Nicotine dependence, unspecified, uncomplicated; Z79.899 Other long term (current) drug therapy; Z88.8 Allergy status to other drugs, medicaments and biological substances
CPT/HCPCS: 99284; 96365; 96375 ×3; 96361; 36415; 93005; 80053; 85025; 70450; J1200; J1100; J2765; J3475; S0119

== ENCOUNTER 2019-11-04 08:25 | Emergency (ER) | payer OTHER ==
[2019-11-04 08:31] VITALS: RESP 16; TEMP 98.3
[2019-11-04] MEDS ORDERED: METOCLOPRAMIDE 5 MG/ML 2 ML VIAL IVP STA (08:40)
[2019-11-04] MEDS ORDERED: MECLIZINE 12.5 MG TAB PO STA (08:40)
[2019-11-04] MEDS ORDERED: SODIUM CHLORIDE 0.9% 1,000 ML IV STA (08:40)
--- NOTE | 2019-11-04 08:43 | ED ---
General Adult HPI - General Chief complaint: Dizziness Stated complaint: light headed Time Seen by Provider: 11/04/19 08:33 Source: patient, RN notes reviewed Mode of arrival: ambulatory Limitations: no limitations - History of Present Illness Initial comments: Patient is a pleasant 44-year-old male presenting to the emergency Department with complaints of lightheadedness. Onset of symptoms was when he woke this morning. Patient has had similar symptoms previously however this is worse than normal. Patient states he feels lightheaded and like he is floating. No confusion. No speech problems. No weakness. No difficulty with ambulation. Patient does have some mild tremor sensation. No alcohol use - Related Data Home Medications Medication Instructions Recorded Confirmed Ibuprofen [Motrin Ib] 400 - 800 mg PO Q8H PRN 11/04/19 11/04/19 Loratadine [Claritin] 10 mg PO DAILY 11/04/19 11/04/19 Multivitamin [Multivitamins Adult 1 tab PO DAILY 11/04/19 11/04/19 Gummies] Omeprazole 20 mg PO DAILY 11/04/19 11/04/19 Previous Rx's Medication Instructions Recorded Meclizine [Antivert] 25 mg PO TID PRN #12 tab 11/04/19 Metoclopramide HCl [Reglan] 10 mg PO Q6HR PRN #15 tablet 11/04/19 Allergies Allergy/AdvReac Type Severity Reaction Status Date / Time topiramate [From Topamax] Allergy RAPID Verified 11/04/19 09:45 HEART BEAT Review of Systems ROS Statement: Those systems with pertinent positive or pertinent negative responses have been documented in the HPI. ROS Other: All systems not noted in ROS Statement are negative. Constitutional: Denies: fever Eyes: Denies: eye pain ENT: Denies: ear pain Respiratory: Denies: cough Cardiovascular: Denies: chest pain Endocrine: Denies: fatigue Gastrointestinal: Denies: abdominal pain Genitourinary: Denies: dysuria Musculoskeletal: Denies: back pain Skin: Denies: rash Neurological: Denies: headache, weakness, numbness, paresthesias, confusion, abnormal gait Past Medical History Past Medical History: No Reported History, GERD/Reflux Additional Past Medical History / Comment(s): chews tobacco History of Any Multi-Drug Resistant Organisms: None Reported Past Surgical History: Orthopedic Surgery Additional Past Surgical History / Comment(s): neck fusion, left knee surgery Past Anesthesia/Blood Transfusion Reactions: No Reported Reaction Past Psychological History: Anxiety Smoking Status: Current every day smoker Past Alcohol Use History: Occasional Past Drug Use History: Marijuana General Exam Limitations: no limitations General appearance: alert, in no apparent distress Head exam: Present: atraumatic, normocephalic Eye exam: Present: normal appearance, PERRL, EOMI. Absent: nystagmus ENT exam: Present: normal exam Neck exam: Present: normal inspection Respiratory exam: Present: normal lung sounds bilaterally Cardiovascular Exam: Present: regular rate, normal rhythm GI/Abdominal exam: Present: soft. Absent: tenderness Extremities exam: Present: normal inspection. Absent: pedal edema, calf tenderness Neurological exam: Present: alert, oriented X3, CN II-XII intact. Absent: motor sensory deficit Expanded Neurological exam: Present: protecting the airway Patient oriented to: Present: person, place, time Speech: Present: fluid speech Cranial nerves: EOM's Intact: Normal, Facial Sensation: Normal Sensory exam: Upper Extremity Light Touch: Normal, Lower Extremity Light Touch: Normal Motor strength exam: RUE: 5, LUE: 5, RLE: 5, LLE: 5 Eye Response: (4) open spontaneously Motor Response: (6) obeys commands Verbal Response: (5) oriented Psychiatric exam: Present: normal affect, normal mood Skin exam: Present: normal color. Absent: rash Course Vital Signs 11/04/19 08:29 Temperature 98.3 F Pulse Rate 99 Respiratory 16 Rate Blood Pressure 142/94 O2 Sat by Pulse 97 Oximetry EKG Findings - EKG Comments: EKG Findings:: Normal sinus rhythm 87. TX 166. QRS 92. QT 360. QTC 433. Right axis. Normal QRS and no acute ST change. Medical Decision Making - Medical Decision Making Patient reevaluated and resting comfortably in bed. Patient states he feels much better however not completely symptom-free. Patient is able to get up and and really without difficulty. Patient updated on results and need for follow- up. - Lab Data Result diagrams: 11/04/19 08:49 11/04/19 08:49 Lab Results 11/04/19 11/04/19 11/04/19 Range/Units 08:49 08:49 08:49 WBC 9.3 (3.8-10.6) k/uL RBC 5.24 (4.30-5.90) m/uL Hgb 16.1 (13.0-17.5) gm/dL Hct 48.9 (39.0-53.0) % MCV 93.4 (80.0-100.0) fL MCH 30.7 (25.0-35.0) pg MCHC 32.8 (31.0-37.0) g/dL RDW 12.0 (11.5-15.5) % Plt Count 362 (150-450) k/uL Neutrophils % 63 % Lymphocytes % 27 % Monocytes % 5 % Eosinophils % 2 % Basophils % 1 % Neutrophils # 5.8 (1.3-7.7) k/uL Lymphocytes # 2.5 (1.0-4.8) k/uL Monocytes # 0.5 (0-1.0) k/uL Eosinophils # 0.2 (0-0.7) k/uL Basophils # 0.1 (0-0.2) k/uL Sodium 137 (137-145) mmol/L Potassium 4.7 (3.5-5.1) mmol/L Chloride 104 (98-107) mmol/L Carbon Dioxide 24 (22-30) mmol/L Anion Gap 9 mmol/L BUN 13 (9-20) mg/dL Creatinine 0.77 (0.66-1.25) mg/dL Est GFR (CKD-EPI)AfAm >90 (>60 ml/min/1.73 sqM) Est GFR (CKD-EPI)NonAf >90 (>60 ml/min/1.73 sqM) Glucose 132 H (74-99) mg/dL POC Glucose (mg/dL) (75-99) mg/dL POC Glu Fabricator Special Items ID Calcium 9.9 (8.4-10.2) mg/dL Total Bilirubin 1.0 (0.2-1.3) mg/dL AST 32 (17-59) U/L ALT 41 (4-49) U/L Alkaline Phosphatase 61 (38-126) U/L Total Protein 7.4 (6.3-8.2) g/dL Albumin 4.8 (3.5-5.0) g/dL Urine Color Light Yellow Urine Appearance Clear (Clear) Urine pH 5.5 (5.0-8.0) Ur Specific [place] 1.008 (1.001-1.035) Urine Protein Negative (Negative) Urine Glucose (UA) Negative (Negative) Urine Ketones Negative (Negative) Urine Blood Negative (Negative) Urine Nitrite Negative (Negative) Urine Bilirubin Negative (Negative) Urine Urobilinogen <2.0 (<2.0) mg/dL Ur Leukocyte Esterase Negative (Negative) 11/04/19 Range/Units 09:01 WBC (3.8-10.6) k/uL RBC (4.30-5.90) m/uL Hgb (13.0-17.5) gm/dL Hct (39.0-53.0) % MCV (80.0-100.0) fL MCH (25.0-35.0) pg MCHC (31.0-37.0) g/dL RDW (11.5-15.5) % Plt Count (150-450) k/uL Neutrophils % % Lymphocytes % % Monocytes % % Eosinophils % % Basophils % % Neutrophils # (1.3-7.7) k/uL Lymphocytes # (1.0-4.8) k/uL Monocytes # (0-1.0) k/uL Eosinophils # (0-0.7) k/uL Basophils # (0-0.2) k/uL Sodium (137-145) mmol/L Potassium (3.5-5.1) mmol/L Chloride (98-107) mmol/L Carbon Dioxide (22-30) mmol/L Anion Gap mmol/L BUN (9-20) mg/dL Creatinine (0.66-1.25) mg/dL Est GFR (CKD-EPI)AfAm (>60 ml/min/1.73 sqM) Est GFR (CKD-EPI)NonAf (>60 ml/min/1.73 sqM) Glucose (74-99) mg/dL POC Glucose (mg/dL) 143 H (75-99) mg/dL POC Glu Fabricator Special Items ID Patel, Kiet Calcium (8.4-10.2) mg/dL Total Bilirubin (0.2-1.3) mg/dL AST (17-59) U/L ALT (4-49) U/L Alkaline Phosphatase (38-126) U/L Total Protein (6.3-8.2) g/dL Albumin (3.5-5.0) g/dL Urine Color Urine Appearance (Clear) Urine pH (5.0-8.0) Ur Specific [place] (1.001-1.035) Urine Protein (Negative) Urine Glucose (UA) (Negative) Urine Ketones (Negative) Urine Blood (Negative) Urine Nitrite (Negative) Urine Bilirubin (Negative) Urine Urobilinogen (<2.0) mg/dL Ur Leukocyte Esterase (Negative) Disposition Clinical Impression: Lightheadedness Disposition: HOME SELF-CARE Condition: Stable Instructions (If sedation given, give patient instructions): Dizziness (ED) Additional Instructions: [id number] Antivert as needed. Prescription sent to pharmacy, [facility] on [address]. Return for worsening symptoms, difficulty walking, confusion or weakness, worsening symptoms or any other concerns. Please follow-up with primary care physician in the next couple of days for recheck. If symptoms continue consider neurology or ENT evaluation. Prescriptions: Meclizine [Antivert] 25 mg PO TID PRN #12 tab PRN Reason: dizziness Metoclopramide HCl [Reglan] 10 mg PO Q6HR PRN #15 tablet PRN Reason: Nausea Is patient prescribed a controlled substance at d/c from ED?: No Referrals: [facility],Clinic [Primary Care Provider] - 1-2 days Time of Disposition: 10:22
[2019-11-04 09:11] LABS: Glucose,Whole Blood 143 mg/dL (75-99)
[2019-11-04 09:16] LABS: Appearance,Urine Clear (Clear); Bilirubin,Urine Negative (Negative); Blood,Urine Negative (Negative); Color,Urine Light Yellow; Glucose,Urine (UA) Negative (Negative); Ketones,Urine Negative (Negative); Leukocyte Esterase,Urine Negative (Negative); Nitrite,Urine Negative (Negative); PH, Urine 5.5 (5.0-8.0); Protein,Urine Negative (Negative); Specific Gravity,Urine 1.008 (1.001-1.035); Urobilinogen,Urine <2.0 mg/dL (<2.0)
[2019-11-04 09:18] LABS: Basophils # (A) 0.1 k/uL (0-0.2); Basophils % (A) 1 %; Eosinophils # (A) 0.2 k/uL (0-0.7); Eosinophils % (A) 2 %; HCT 48.9 % (39.0-53.0); HGB 16.1 gm/dL (13.0-17.5); Lymphocytes # (A) 2.5 k/uL (1.0-4.8); Lymphocytes % (A) 27 %; MCH 30.7 pg (25.0-35.0); MCHC 32.8 g/dL (31.0-37.0); MCV 93.4 fL (80.0-100.0); Mean Platelet Volume 7.5; Monocytes # (A) 0.5 k/uL (0-1.0); Monocytes % (A) 5 %; Neutrophils # (A) 5.8 k/uL (1.3-7.7); Neutrophils % (A) 63 %; Platelet Count 362 k/uL (150-450); RBC 5.24 m/uL (4.30-5.90); WBC 9.3 k/uL (3.8-10.6)
[2019-11-04 09:26] LABS: ALT 41 U/L (4-49); AST 32 U/L (17-59); African American GFR (CKD) >90 (>60 ml/min/1.73 sqM); Albumin 4.8 g/dL (3.5-5.0); Alkaline Phosphatase 61 U/L (38-126); Anion Gap 9 mmol/L; Blood Urea Nitrogen 13 mg/dL (9-20); Calcium 9.9 mg/dL (8.4-10.2); Carbon Dioxide 24 mmol/L (22-30); Chloride 104 mmol/L (98-107); Glucose 132 mg/dL (74-99); Non-African American GFR(CKD) >90 (>60 ml/min/1.73 sqM); Potassium 4.7 mmol/L (3.5-5.1); Sodium 137 mmol/L (137-145); Total Protein 7.4 g/dL (6.3-8.2)
[2019-11-04 10:35] VITALS: BP 131/77; PULSE 75
== END 2019-11-04 10:52 | disposition home or self-care (01) ==
LOC: EC 08:25
DX: R42 Dizziness and giddiness (principal); R25.1 Tremor, unspecified; F17.200 Nicotine dependence, unspecified, uncomplicated; K21.9 Gastro-esophageal reflux disease without esophagitis; Z79.899 Other long term (current) drug therapy; Z88.6 Allergy status to analgesic agent; Z98.1 Arthrodesis status
CPT/HCPCS: 36415; 93005; 80053; 85025; 81003; 99284; 96374; 96361 ×2; J2765

== ENCOUNTER 2020-06-05 18:30 | Emergency (ER) | payer OTHER ==
[2020-06-05 18:46] VITALS: RESP 18
[2020-06-05 19:15] LABS: Basophils # (A) 0.1 k/uL (0-0.2); Basophils % (A) 1 %; Eosinophils # (A) 0.4 k/uL (0-0.7); Eosinophils % (A) 2 %; HCT 48.4 % (39.0-53.0); HGB 16.9 gm/dL (13.0-17.5); Lymphocytes # (A) 4.2 k/uL (1.0-4.8); Lymphocytes % (A) 23 %; MCH 32.4 pg (25.0-35.0); MCHC 34.9 g/dL (31.0-37.0); Mean Platelet Volume 7.2; Monocytes % (A) 5 %; Neutrophils # (A) 12.4 k/uL (1.3-7.7); Neutrophils % (A) 68 %; Platelet Count 400 k/uL (150-450); RDW 11.9 % (11.5-15.5); WBC 18.3 k/uL (3.8-10.6)
[2020-06-05 19:25] LABS: ALT 32 U/L (4-49); AST 27 U/L (17-59); African American GFR (CKD) >90 (>60 ml/min/1.73 sqM); Albumin 4.9 g/dL (3.5-5.0); Alkaline Phosphatase 66 U/L (38-126); Anion Gap 9 mmol/L; Blood Urea Nitrogen 13 mg/dL (9-20); Calcium 10.5 mg/dL (8.4-10.2); Carbon Dioxide 26 mmol/L (22-30); Chloride 102 mmol/L (98-107); Glucose 99 mg/dL (74-99); INR 0.9 (<1.2); Magnesium 2.1 mg/dL (1.6-2.3); Non-African American GFR(CKD) >90 (>60 ml/min/1.73 sqM); Potassium 4.2 mmol/L (3.5-5.1); Prothrombin Time 9.8 sec (9.0-12.0); Sodium 137 mmol/L (137-145); Total Bilirubin 0.9 mg/dL (0.2-1.3); Total Protein 7.5 g/dL (6.3-8.2)
--- NOTE | 2020-06-05 20:13 | XR ---
EXAMINATION TYPE: XR chest 2V DATE OF EXAM: 06/05/2020 COMPARISON: 05/30/2018 HISTORY: Chest pain TECHNIQUE: FINDINGS: Heart and mediastinum are normal. Lungs are clear of consolidation. There are no hilar mass es. Bony thorax is intact. There is no evidence of pleural effusion. IMPRESSION: No active cardiopulmonary disease. Normal heart. No change.
[2020-06-05 21:34] VITALS: TEMP 98
--- NOTE | 2020-06-05 22:40 | ED ---
General Adult HPI - General Chief complaint: Chest Pain Stated complaint: Chest Pain Time Seen by Provider: 06/05/20 21:37 Source: patient Mode of arrival: ambulatory Limitations: no limitations - History of Present Illness Initial comments: 44-year-old male with a past smoking history, no other past medical history presents to the emergency room for palpitations. Patient reports that he has had palpitations for the past 12 hours. States it feels like a fluttering in his chest. States it comes and goes. He sometimes has pain associated in left upper chest but otherwise denies pain. Patient denies any nausea or lightheadedness. Denies shortness of breath. Patient states he has had these before by usually or not this bad. Patient does admit that he started at 10 take or so steroids and is on day 7 for his knee.Patient has no other complaints at this time including shortness of breath, chest pain, abdominal pain, nausea or vomiting, headache, or visual changes. - Related Data Home Medications Medication Instructions Recorded Confirmed Multivitamin [Multivitamins Adult 1 tab PO DAILY 11/04/19 06/05/20 Gummies] Omeprazole 20 mg PO DAILY 11/04/19 06/05/20 Cetirizine HCl [Zyrtec] 10 mg PO DAILY PRN 06/05/20 06/05/20 Fluticasone Nasal [place] [Flonase 2 spray EA NOSTRIL HS PRN 06/05/20 06/05/20 Nasal [place]] Ibuprofen [Motrin] 400 mg PO Q6HR PRN 06/05/20 06/05/20 methocarbamoL [Robaxin] 500 mg PO BID 06/05/20 06/05/20 Allergies Allergy/AdvReac Type Severity Reaction Status Date / Time topiramate [From Topamax] Allergy RAPID Verified 06/05/20 23:15 HEART BEAT Review of Systems ROS Statement: Those systems with pertinent positive or pertinent negative responses have been documented in the HPI. ROS Other: All systems not noted in ROS Statement are negative. Past Medical History Past Medical History: No Reported History, GERD/Reflux Additional Past Medical History / Comment(s): chews tobacco History of Any Multi-Drug Resistant Organisms: None Reported Past Surgical History: Orthopedic Surgery Additional Past Surgical History / Comment(s): neck fusion, left knee surgery Past Anesthesia/Blood Transfusion Reactions: No Reported Reaction Past Psychological History: Anxiety Smoking Status: Current every day smoker Past Alcohol Use History: Occasional Past Drug Use History: Marijuana General Exam Limitations: no limitations General appearance: alert, in no apparent distress Head exam: Present: atraumatic, normocephalic, normal inspection Eye exam: Present: normal appearance, PERRL, EOMI. Absent: scleral icterus, conjunctival injection, periorbital swelling ENT exam: Present: normal exam, mucous membranes moist Neck exam: Present: normal inspection. Absent: tenderness, meningismus, lymphadenopathy Respiratory exam: Present: normal lung sounds bilaterally. Absent: respiratory distress, wheezes, rales, rhonchi, stridor Cardiovascular Exam: Present: regular rate, normal rhythm, normal heart sounds. Absent: systolic murmur, diastolic murmur, rubs, gallop, clicks GI/Abdominal exam: Present: soft, normal bowel sounds. Absent: distended, tenderness, guarding, rebound, rigid Course Vital Signs 06/05/20 06/05/20 06/05/20 18:44 21:29 23:00 Temperature 97.9 F 98 F Pulse Rate 62 85 64 Respiratory 18 18 18 Rate Blood Pressure 124/65 135/84 O2 Sat by Pulse 99 95 96 Oximetry 06/05/20 23:47 Temperature Pulse Rate 65 Respiratory 18 Rate Blood Pressure 131/90 O2 Sat by Pulse 95 Oximetry EKG Findings - EKG Comments: EKG Findings:: Sinus rhythm with PVCs, , ventricular rate 89, CO interval 164, QTc 425. Medical Decision Making - Medical Decision Making Are stable. EKG did reveal a PAC which is likely the cause of patient's symptom s. Laboratory evaluation was initiated. Patient does have leukocytosis which is likely related to his 7 day steroid course. CMP is unremarkable. Troponin 2 negative. he had a stress test one year ago that was normal. At this time patient reevaluated, resting comfortably, sleeping. Patient can be discharged home to follow up with primary care and cardiology. He will return here for any worsening symptoms. - Lab Data Result diagrams: 06/05/20 19:06/05/20 19: Lab Results 06/05/20 06/05/20 06/05/20 Range/Units 19:01 19: 19: WBC 18.3 H (3.8-10.6) k/uL RBC 5.20 (4.30-5.90) m/uL Hgb 16.9 (13.0-17.5) gm/dL Hct 48.4 (39.0-53.0) % MCV 93.0 (80.0-100.0) fL MCH 32.4 (25.0-35.0) pg MCHC 34.9 (31.0-37.0) g/dL RDW 11.9 (11.5-15.5) % Plt Count 400 (150-450) k/uL MPV 7.2 Neutrophils % 68 % Lymphocytes % 23 % Monocytes % 5 % Eosinophils % 2 % Basophils % 1 % Neutrophils # 12.4 H (1.3-7.7) k/uL Lymphocytes # 4.2 (1.0-4.8) k/uL Monocytes # 1.0 (0-1.0) k/uL Eosinophils # 0.4 (0-0.7) k/uL Basophils # 0.1 (0-0.2) k/uL PT 9.8 (9.0-12.0) sec INR 0.9 (<1.2) APTT 23.0 (22.0-30.0) sec Sodium 137 (137-145) mmol/L Potassium 4.2 (3.5-5.1) mmol/L Chloride 102 (98-107) mmol/L Carbon Dioxide 26 (22-30) mmol/L Anion Gap 9 mmol/L BUN 13 (9-20) mg/dL Creatinine 0.86 (0.66-1.25) mg/dL Est GFR (CKD-EPI)AfAm >90 (>60 ml/min/1.73 sqM) Est GFR (CKD-EPI)NonAf >90 (>60 ml/min/1.73 sqM) Glucose 99 (74-99) mg/dL Calcium 10.5 H (8.4-10.2) mg/dL Magnesium 2.1 (1.6-2.3) mg/dL Total Bilirubin 0.9 (0.2-1.3) mg/dL AST 27 (17-59) U/L ALT 32 (4-49) U/L Alkaline Phosphatase 66 (38-126) U/L Troponin I (0.000-0.034) ng/mL Total Protein 7.5 (6.3-8.2) g/dL Albumin 4.9 (3.5-5.0) g/dL 06/05/20 06/05/20 Range/Units 19:01 22:49 WBC (3.8-10.6) k/uL RBC (4.30-5.90) m/uL Hgb (13.0-17.5) gm/dL Hct (39.0-53.0) % MCV (80.0-100.0) fL MCH (25.0-35.0) pg MCHC (31.0-37.0) g/dL RDW (11.5-15.5) % Plt Count (150-450) k/uL MPV Neutrophils % % Lymphocytes % % Monocytes % % Eosinophils % % Basophils % % Neutrophils # (1.3-7.7) k/uL Lymphocytes # (1.0-4.8) k/uL Monocytes # (0-1.0) k/uL Eosinophils # (0-0.7) k/uL Basophils # (0-0.2) k/uL PT (9.0-12.0) sec INR (<1.2) APTT (22.0-30.0) sec Sodium (137-145) mmol/L Potassium (3.5-5.1) mmol/L Chloride (98-107) mmol/L Carbon Dioxide (22-30) mmol/L Anion Gap mmol/L BUN (9-20) mg/dL Creatinine (0.66-1.25) mg/dL Est GFR (CKD-EPI)AfAm (>60 ml/min/1.73 sqM) Est GFR (CKD-EPI)NonAf (>60 ml/min/1.73 sqM) Glucose (74-99) mg/dL Calcium (8.4-10.2) mg/dL Magnesium (1.6-2.3) mg/dL Total Bilirubin (0.2-1.3) mg/dL AST (17-59) U/L ALT (4-49) U/L Alkaline Phosphatase (38-126) U/L Troponin I <0.012 <0.012 (0.000-0.034) ng/mL Total Protein (6.3-8.2) g/dL Albumin (3.5-5.0) g/dL Disposition Clinical Impression: Palpitations, PAC (premature atrial contraction) Disposition: HOME SELF-CARE Condition: Good Instructions (If sedation given, give patient instructions): Heart Palpitations (ED) Additional Instructions: please follow up with primary care and cardiology. If you have any worsening symptoms return to the emergency room. Is patient prescribed a controlled substance at d/c from ED?: No Referrals: [facility],Clinic [Primary Care Provider] - 1-2 days Time of Disposition: 00:20
[2020-06-05 23:48] VITALS: BP 131/90
[2020-06-06 00:43] VITALS: PULSE 63
== END 2020-06-06 00:40 | disposition home or self-care (01) ==
LOC: EC 18:30
DX: I49.1 Atrial premature depolarization (principal); K21.9 Gastro-esophageal reflux disease without esophagitis; F17.200 Nicotine dependence, unspecified, uncomplicated; Z79.899 Other long term (current) drug therapy; Z88.8 Allergy status to other drugs, medicaments and biological substances; Z98.1 Arthrodesis status
CPT/HCPCS: 36415; 71046; 80053; 83735; 84484; 85025; 85610; 85730; 99285

== ENCOUNTER 2021-01-15 08:20 | Emergency (ER) | payer OTHER ==
[2021-01-15 08:33] VITALS: RESP 18; TEMP 98.2
[2021-01-15] MEDS ORDERED: SODIUM CHLORIDE 0.9% 1,000 ML IV STA (08:54)
[2021-01-15] MEDS ORDERED: ONDANSETRON 4 MG/2 ML VIAL IVP STA ×2 (08:54→09:00)
[2021-01-15] MEDS ORDERED: MECLIZINE 25 MG TAB PO STA (08:54)
--- NOTE | 2021-01-15 09:03 | ED ---
General Adult HPI - General Chief complaint: Dizziness Stated complaint: lightheaded, not feeling well Time Seen by Provider: 01/15/21 08:30 Source: patient, RN notes reviewed, old records reviewed Mode of arrival: ambulatory Limitations: no limitations - History of Present Illness Initial comments: This is a 45-year-old male who presents emergency Department complaining that he woke up this morning and he felt lightheaded as if everything around and was moving a little bit. Patient states he's had intermittent nausea as well. Patient states moving his head deftly makes it worse. Patient denies headache. Patient denies numbness weakness. Patient denies near syncopal episode. Patient denies any ringing in ears or new onset deafness. Patient denies any coordination problems. Patient denies chest pain palpitations difficulty breathing shortness breath per patient denies any fever chills. Patient states she's been doing with a little bit of a sinus issue lately. Patient denies any abdominal pain patient denies nausea vomiting diarrhea. Patient denies any loss of taste or smell. - Related Data Home Medications Medication Instructions Recorded Confirmed Multivitamin [Multivitamins Adult 1 tab PO DAILY 11/04/19 06/05/20 Gummies] Omeprazole 20 mg PO DAILY 11/04/19 06/05/20 Cetirizine HCl [Zyrtec] 10 mg PO DAILY PRN 06/05/20 06/05/20 Fluticasone Nasal [place] [Flonase 2 spray EA NOSTRIL HS PRN 06/05/20 06/05/20 Nasal [place]] Ibuprofen [Motrin] 400 mg PO Q6HR PRN 06/05/20 06/05/20 methocarbamoL [Robaxin] 500 mg PO BID 06/05/20 06/05/20 Previous Rx's Medication Instructions Recorded Meclizine [Antivert] 25 mg PO TID #20 tab 01/15/21 Allergies Allergy/AdvReac Type Severity Reaction Status Date / Time topiramate [From Topamax] Allergy RAPID Verified 01/15/21 08:33 HEART BEAT Review of Systems ROS Statement: Those systems with pertinent positive or pertinent negative responses have been documented in the HPI. ROS Other: All systems not noted in ROS Statement are negative. Past Medical History Past Medical History: No Reported History, GERD/Reflux Additional Past Medical History / Comment(s): chews tobacco History of Any Multi-Drug Resistant Organisms: None Reported Past Surgical History: Orthopedic Surgery Additional Past Surgical History / Comment(s): neck fusion, left knee surgery Past Anesthesia/Blood Transfusion Reactions: No Reported Reaction Past Psychological History: Anxiety Smoking Status: Current every day smoker Past Alcohol Use History: Occasional Past Drug Use History: Marijuana General Exam - General Exam Comments Initial Comments: GENERAL: Patient is well-developed and well-nourished. Patient is nontoxic and well- hydrated and is in mild distress. ENT: Neck is soft and supple. No significant lymphadenopathy is noted. Oropharynx is clear. Moist mucous membranes. Neck has full range of motion without eliciting any pain. EYES: The sclera were anicteric and conjunctiva were pink and moist. Extraocular movements were intact and pupils were equal round and reactive to light. Eyelids were unremarkable. PULMONARY: Unlabored respirations. Good breath sounds bilaterally. No audible rales rhonchi or wheezing was noted. CARDIOVASCULAR: There is a regular rate and rhythm without any murmurs gallops or rubs. ABDOMEN: Soft and nontender with normal bowel sounds. SKIN: Skin is clear with no lesions or rashes and otherwise unremarkable. NEUROLOGIC: Patient is alert and oriented x3. Cranial nerves II through XII are grossly intact. Motor and sensory are also intact. Normal speech, volume and content. Symmetrical smile. Cerebellar testing finger to nose is normal bilaterally Cerebellar exam grossly intact. MUSCULOSKELETAL: Normal extremities with adequate strength and full range of motion. No lower extremity swelling or edema. No calf tenderness. LYMPHATICS: No significant lymphadenopathy is noted PSYCHIATRIC: Normal psychiatric evaluation. Limitations: no limitations Course Vital Signs 01/15/21 01/15/21 08:30 10:33 Temperature 98.2 F Pulse Rate 85 78 Respiratory 18 18 Rate Blood Pressure 146/90 139/95 O2 Sat by Pulse 97 97 Oximetry Medical Decision Making - Medical Decision Making EKG shows normal sinus rhythm at 77 bpm NC interval 168 QRS is 90 QT interval 390 QTC is 441 per patient's EKG shows no ST segment elevation or depression. Computed tomography scan of the brain shows no acute abnormality. Chest x-ray shows no acute abnormalities. Patient was given Antivert emergency department. Patient states symptoms have lessened. Patient we discharged home to follow-up with ENT if symptoms persist. - Lab Data Result diagrams: 01/15/21 08:57 01/15/21 08:57 Lab Results 01/15/21 01/15/21 01/15/21 Range/Units 08:57 08:57 08:57 WBC 9.0 (3.8-10.6) k/uL RBC 4.97 (4.30-5.90) m/uL Hgb 16.1 (13.0-17.5) gm/dL Hct 47.0 (39.0-53.0) % MCV 94.6 (80.0-100.0) fL MCH 32.4 (25.0-35.0) pg MCHC 34.3 (31.0-37.0) g/dL RDW 11.7 (11.5-15.5) % Plt Count 396 (150-450) k/uL MPV 7.4 Neutrophils % 60 % Lymphocytes % 26 % Monocytes % 7 % Eosinophils % 3 % Basophils % 1 % Neutrophils # 5.4 (1.3-7.7) k/uL Lymphocytes # 2.4 (1.0-4.8) k/uL Monocytes # 0.6 (0-1.0) k/uL Eosinophils # 0.2 (0-0.7) k/uL Basophils # 0.1 (0-0.2) k/uL PT 9.5 (9.0-12.0) sec INR 0.9 (<1.2) APTT 25.0 (22.0-30.0) sec Sodium 139 (137-145) mmol/L Potassium 4.7 (3.5-5.1) mmol/L Chloride 106 (98-107) mmol/L Carbon Dioxide 23 (22-30) mmol/L Anion Gap 10 mmol/L BUN 11 (9-20) mg/dL Creatinine 0.79 (0.66-1.25) mg/dL Est GFR (CKD-EPI)AfAm >90 (>60 ml/min/1.73 sqM) Est GFR (CKD-EPI)NonAf >90 (>60 ml/min/1.73 sqM) Glucose 88 (74-99) mg/dL Calcium 9.9 (8.4-10.2) mg/dL Magnesium 1.9 (1.6-2.3) mg/dL Total Bilirubin 0.7 (0.2-1.3) mg/dL AST 27 (17-59) U/L ALT 38 (4-49) U/L Alkaline Phosphatase 69 (38-126) U/L Troponin I (0.000-0.034) ng/mL Total Protein 7.4 (6.3-8.2) g/dL Albumin 4.5 (3.5-5.0) g/dL 01/15/21 Range/Units 08:57 WBC (3.8-10.6) k/uL RBC (4.30-5.90) m/uL Hgb (13.0-17.5) gm/dL Hct (39.0-53.0) % MCV (80.0-100.0) fL MCH (25.0-35.0) pg MCHC (31.0-37.0) g/dL RDW (11.5-15.5) % Plt Count (150-450) k/uL MPV Neutrophils % % Lymphocytes % % Monocytes % % Eosinophils % % Basophils % % Neutrophils # (1.3-7.7) k/uL Lymphocytes # (1.0-4.8) k/uL Monocytes # (0-1.0) k/uL Eosinophils # (0-0.7) k/uL Basophils # (0-0.2) k/uL PT (9.0-12.0) sec INR (<1.2) APTT (22.0-30.0) sec Sodium (137-145) mmol/L Potassium (3.5-5.1) mmol/L Chloride (98-107) mmol/L Carbon Dioxide (22-30) mmol/L Anion Gap mmol/L BUN (9-20) mg/dL Creatinine (0.66-1.25) mg/dL Est GFR (CKD-EPI)AfAm (>60 ml/min/1.73 sqM) Est GFR (CKD-EPI)NonAf (>60 ml/min/1.73 sqM) Glucose (74-99) mg/dL Calcium (8.4-10.2) mg/dL Magnesium (1.6-2.3) mg/dL Total Bilirubin (0.2-1.3) mg/dL AST (17-59) U/L ALT (4-49) U/L Alkaline Phosphatase (38-126) U/L Troponin I <0.012 (0.000-0.034) ng/mL Total Protein (6.3-8.2) g/dL Albumin (3.5-5.0) g/dL Disposition Clinical Impression: Vertigo Disposition: HOME SELF-CARE Condition: Good Instructions (If sedation given, give patient instructions): Vertigo (ED) Prescriptions: Meclizine [Antivert] 25 mg PO TID #20 tab Is patient prescribed a controlled substance at d/c from ED?: No Referrals: [facility],Clinic [Primary Care Provider] - 1-2 days Time of Disposition: 11:11
[2021-01-15 09:40] LABS: Basophils # (A) 0.1 k/uL (0-0.2); Basophils % (A) 1 %; Eosinophils # (A) 0.2 k/uL (0-0.7); Eosinophils % (A) 3 %; HGB 16.1 gm/dL (13.0-17.5); Lymphocytes # (A) 2.4 k/uL (1.0-4.8); Lymphocytes % (A) 26 %; MCH 32.4 pg (25.0-35.0); MCHC 34.3 g/dL (31.0-37.0); MCV 94.6 fL (80.0-100.0); Mean Platelet Volume 7.4; Monocytes # (A) 0.6 k/uL (0-1.0); Monocytes % (A) 7 %; Neutrophils # (A) 5.4 k/uL (1.3-7.7); Neutrophils % (A) 60 %; Platelet Count 396 k/uL (150-450); RBC 4.97 m/uL (4.30-5.90); RDW 11.7 % (11.5-15.5)
[2021-01-15 09:50] LABS: INR 0.9 (<1.2); Prothrombin Time 9.5 sec (9.0-12.0)
--- NOTE | 2021-01-15 09:57 | XR ---
EXAMINATION TYPE: XR chest 2V DATE OF EXAM: 01/15/2021 COMPARISON: 06/05/2020 TECHNIQUE: PA and lateral views submitted. HISTORY: Chest pain FINDINGS: The lungs are clear and there is no pneumothorax, pleural effusion, or focal pneumonia. Heart size is normal. Surgical changes overlying the cervical spine. No overt failure. IMPRESSION: 1. No acute process.
--- NOTE | 2021-01-15 09:59 | CT ---
EXAMINATION TYPE: CT brain wo con DATE OF EXAM: 01/15/2021 COMPARISON: CT brain November 26, 2018 HISTORY: Dizziness and gait disturbance. CT DLP: 1121.4 mGycm. Automated Exposure Control for Dose Reduction was Utilized. TECHNIQUE: CT scan of the head is performed without contrast. FINDINGS: There is no acute intracranial hemorrhage, mass effect, or midline shift identified. The ventricles and sulci are within normal limits in size. Delgado-white matter differentiation maintained. Moderate to severe mucosal thickening and/or polyps in the inferior aspect left maxillary sinus othe rwise paranasal sinuses are clear. Stable bilateral symmetric proptosis. IMPRESSION: No acute intracranial hemorrhage or midline shift is seen. No significant change from 20 19 studies.
[2021-01-15 10:02] LABS: ALT 38 U/L (4-49); AST 27 U/L (17-59); African American GFR (CKD) >90 (>60 ml/min/1.73 sqM); Albumin 4.5 g/dL (3.5-5.0); Alkaline Phosphatase 69 U/L (38-126); Anion Gap 10 mmol/L; Blood Urea Nitrogen 11 mg/dL (9-20); Calcium 9.9 mg/dL (8.4-10.2); Carbon Dioxide 23 mmol/L (22-30); Chloride 106 mmol/L (98-107); Glucose 88 mg/dL (74-99); Magnesium 1.9 mg/dL (1.6-2.3); Non-African American GFR(CKD) >90 (>60 ml/min/1.73 sqM); Potassium 4.7 mmol/L (3.5-5.1); Sodium 139 mmol/L (137-145); Total Bilirubin 0.7 mg/dL (0.2-1.3); Total Protein 7.4 g/dL (6.3-8.2)
[2021-01-15 10:56] VITALS: BP 139/95; PULSE 78
== END 2021-01-15 11:43 | disposition home or self-care (01) ==
LOC: EC 08:20
DX: R42 Dizziness and giddiness (principal); K21.9 Gastro-esophageal reflux disease without esophagitis; F41.9 Anxiety disorder, unspecified; F17.200 Nicotine dependence, unspecified, uncomplicated; F12.90 Cannabis use, unspecified, uncomplicated; Z88.1 Allergy status to other antibiotic agents
CPT/HCPCS: 99284; 96374; 36415; 93005; 80053; 83735; 84484; 85025; 85610; 85730; 71046; 70450; J2405

== ENCOUNTER 2021-05-14 09:46 | Emergency (ER) | payer OTHER ==
[2021-05-14 09:50] VITALS: RESP 20; TEMP 97.6
[2021-05-14 10:08] LABS: Glucose,Whole Blood 90 mg/dL (75-99)
[2021-05-14] MEDS ORDERED: SODIUM CHLORIDE 0.9% 1,000 ML IV STA (10:28)
[2021-05-14] MEDS ORDERED: METOCLOPRAMIDE 5 MG/ML 2 ML VIAL IVP STA (10:29)
[2021-05-14] MEDS ORDERED: LORazepam 2 MG/ML INJ IV STA (10:29)
--- NOTE | 2021-05-14 10:34 | ED ---
General Adult HPI - General Chief complaint: Dizziness Stated complaint: dizzy Time Seen by Provider: 05/14/21 09:52 Source: patient, RN notes reviewed Mode of arrival: ambulatory Limitations: no limitations - History of Present Illness Initial comments: Patient is a pleasant 45-year-old male presenting to the emergency department with lightheadedness. Onset of symptoms was a couple of days ago, mostly yesterday. Patient did feel shaky. Patient has had some lightheadedness. Patient has a mild headache which is chronic for him and unchanged. Patient has had some minimal blurry vision. No arm weakness or speech problems or confusion. No history of similar symptoms previously. - Related Data Home Medications Medication Instructions Recorded Confirmed Fluticasone Nasal [place] [Flonase 2 spray EA NOSTRIL DAILY PRN 06/05/20 05/14/21 Nasal [place]] Ibuprofen [Motrin Ib] 800 mg PO Q6H PRN 05/14/21 05/14/21 Allergies Allergy/AdvReac Type Severity Reaction Status Date / Time topiramate [From Topamax] AdvReac RAPID Verified 05/14/21 10:41 HEART BEAT Review of Systems ROS Statement: Those systems with pertinent positive or pertinent negative responses have been documented in the HPI. ROS Other: All systems not noted in ROS Statement are negative. Constitutional: Denies: fever Eyes: Denies: eye pain ENT: Denies: ear pain Respiratory: Denies: cough Cardiovascular: Denies: chest pain Endocrine: Denies: fatigue Gastrointestinal: Denies: abdominal pain Genitourinary: Denies: dysuria Musculoskeletal: Denies: back pain Skin: Denies: rash Neurological: Reports: as per HPI. Denies: weakness, confusion Past Medical History Past Medical History: No Reported History, GERD/Reflux Additional Past Medical History / Comment(s): chews tobacco History of Any Multi-Drug Resistant Organisms: None Reported Past Surgical History: Orthopedic Surgery Additional Past Surgical History / Comment(s): neck fusion, left knee surgery Past Anesthesia/Blood Transfusion Reactions: No Reported Reaction Past Psychological History: Anxiety Smoking Status: Current every day smoker Past Alcohol Use History: Occasional Past Drug Use History: Marijuana General Exam Limitations: no limitations General appearance: alert, in no apparent distress Head exam: Present: atraumatic, normocephalic Eye exam: Present: normal appearance, PERRL, EOMI ENT exam: Present: normal oropharynx, TM's normal bilaterally Neck exam: Present: normal inspection Respiratory exam: Present: normal lung sounds bilaterally Cardiovascular Exam: Present: regular rate, normal rhythm GI/Abdominal exam: Present: soft. Absent: tenderness Extremities exam: Present: normal inspection Neurological exam: Present: alert, oriented X3, CN II-XII intact. Absent: motor sensory deficit Expanded Neurological exam: Present: protecting the airway Speech: Present: fluid speech Cranial nerves: EOM's Intact: Normal Sensory exam: Upper Extremity Light Touch: Normal, Lower Extremity Light Touch: Normal Motor strength exam: RUE: 5, LUE: 5, RLE: 5, LLE: 5 Eye Response: (4) open spontaneously Motor Response: (6) obeys commands Verbal Response: (5) oriented Psychiatric exam: Present: normal affect, normal mood Skin exam: Present: normal color Course Vital Signs 05/14/21 09:48 Temperature 97.6 F Pulse Rate 95 Respiratory 20 Rate Blood Pressure 151/87 O2 Sat by Pulse 98 Oximetry EKG Findings - EKG Comments: EKG Findings:: Sinus rhythm rate 66. MD 171. QRS 102. QT 400. QTc 414. Normal axis. Normal QRS. No acute ST change. Medical Decision Making - Medical Decision Making Patient reevaluated and resting comfortably in bed. Patient does feel better with medication. Patient updated on results and need for follow-up. - Lab Data Result diagrams: 05/14/21 10:53 05/14/21 10:53 Lab Results 05/14/21 05/14/21 05/14/21 Range/Units 10:06 10:53 10:53 WBC 11.7 H (3.8-10.6) k/uL RBC 5.07 (4.30-5.90) m/uL Hgb 16.9 (13.0-17.5) gm/dL Hct 48.9 (39.0-53.0) % MCV 96.4 (80.0-100.0) fL MCH 33.4 (25.0-35.0) pg MCHC 34.6 (31.0-37.0) g/dL RDW 11.8 (11.5-15.5) % Plt Count 329 (150-450) k/uL MPV 7.9 Neutrophils % 68 % Lymphocytes % 21 % Monocytes % 6 % Eosinophils % 2 % Basophils % 1 % Neutrophils # 8.0 H (1.3-7.7) k/uL Lymphocytes # 2.5 (1.0-4.8) k/uL Monocytes # 0.7 (0-1.0) k/uL Eosinophils # 0.2 (0-0.7) k/uL Basophils # 0.1 (0-0.2) k/uL Sodium (137-145) mmol/L Potassium (3.5-5.1) mmol/L Chloride (98-107) mmol/L Carbon Dioxide (22-30) mmol/L Anion Gap mmol/L BUN (9-20) mg/dL Creatinine (0.66-1.25) mg/dL Est GFR (CKD-EPI)AfAm (>60 ml/min/1.73 sqM) Est GFR (CKD-EPI)NonAf (>60 ml/min/1.73 sqM) Glucose (74-99) mg/dL POC Glucose (mg/dL) 90 (75-99) mg/dL POC Glu [place]ingo Floater ID Jessica Almazan Plasma Lactic Acid Yves (0.7-2.0) mmol/L Calcium (8.4-10.2) mg/dL Magnesium (1.6-2.3) mg/dL Total Bilirubin (0.2-1.3) mg/dL AST (17-59) U/L ALT (4-49) U/L Alkaline Phosphatase (38-126) U/L Total Protein (6.3-8.2) g/dL Albumin (3.5-5.0) g/dL TSH (0.465-4.680) mIU/L Urine Color Yellow Urine Appearance Clear (Clear) Urine pH 6.0 (5.0-8.0) Ur Specific [place] 1.012 (1.001-1.035) Urine Protein Negative (Negative) Urine Glucose (UA) Negative (Negative) Urine Ketones Negative (Negative) Urine Blood Negative (Negative) Urine Nitrite Negative (Negative) Urine Bilirubin Negative (Negative) Urine Urobilinogen <2.0 (<2.0) mg/dL Ur Leukocyte Esterase Negative (Negative) 05/14/21 05/14/21 Range/Units 10:53 10:53 WBC (3.8-10.6) k/uL RBC (4.30-5.90) m/uL Hgb (13.0-17.5) gm/dL Hct (39.0-53.0) % MCV (80.0-100.0) fL MCH (25.0-35.0) pg MCHC (31.0-37.0) g/dL RDW (11.5-15.5) % Plt Count (150-450) k/uL MPV Neutrophils % % Lymphocytes % % Monocytes % % Eosinophils % % Basophils % % Neutrophils # (1.3-7.7) k/uL Lymphocytes # (1.0-4.8) k/uL Monocytes # (0-1.0) k/uL Eosinophils # (0-0.7) k/uL Basophils # (0-0.2) k/uL Sodium 135 L (137-145) mmol/L Potassium 4.4 (3.5-5.1) mmol/L Chloride 106 (98-107) mmol/L Carbon Dioxide 22 (22-30) mmol/L Anion Gap 7 mmol/L BUN 12 (9-20) mg/dL Creatinine 0.83 (0.66-1.25) mg/dL Est GFR (CKD-EPI)AfAm >90 (>60 ml/min/1.73 sqM) Est GFR (CKD-EPI)NonAf >90 (>60 ml/min/1.73 sqM) Glucose 85 (74-99) mg/dL POC Glucose (mg/dL) (75-99) mg/dL POC Glu [place] Flo[place] ID Plasma Lactic Acid Yves 2.1 H* (0.7-2.0) mmol/L Calcium 9.1 (8.4-10.2) mg/dL Magnesium 1.8 (1.6-2.3) mg/dL Total Bilirubin 1.0 (0.2-1.3) mg/dL AST 24 (17-59) U/L ALT 33 (4-49) U/L Alkaline Phosphatase 59 (38-126) U/L Total Protein 7.1 (6.3-8.2) g/dL Albumin 4.3 (3.5-5.0) g/dL TSH 1.930 (0.465-4.680) mIU/L Urine Color Urine Appearance (Clear) Urine pH (5.0-8.0) Ur Specific [place] (1.001-1.035) Urine Protein (Negative) Urine Glucose (UA) (Negative) Urine Ketones (Negative) Urine Blood (Negative) Urine Nitrite (Negative) Urine Bilirubin (Negative) Urine Urobilinogen (<2.0) mg/dL Ur Leukocyte Esterase (Negative) - Radiology Data Radiology results: report reviewed (CT brain does not reveal acute process), image reviewed (Chest x-ray shows no acute process) Disposition Clinical Impression: Lightheadedness Disposition: HOME SELF-CARE Condition: Stable Instructions (If sedation given, give patient instructions): Dizziness (ED) Additional Instructions: Please do follow-up with primary care physician in the next couple days for recheck. Return for weakness, confusion, off balance, worsening or changing symptoms or other concerns. [id number] Antivert if needed. Is patient prescribed a controlled substance at d/c from ED?: No Referrals: [facility],Clinic [Primary Care Provider] - 1-2 days Time of Disposition: 12:18
[2021-05-14 11:19] LABS: Appearance,Urine Clear (Clear); Bilirubin,Urine Negative (Negative); Blood,Urine Negative (Negative); Color,Urine Yellow; Glucose,Urine (UA) Negative (Negative); Ketones,Urine Negative (Negative); Leukocyte Esterase,Urine Negative (Negative); Nitrite,Urine Negative (Negative); Protein,Urine Negative (Negative); Specific Gravity,Urine 1.012 (1.001-1.035); Urobilinogen,Urine <2.0 mg/dL (<2.0)
[2021-05-14 11:21] LABS: Basophils # (A) 0.1 k/uL (0-0.2); Basophils % (A) 1 %; Eosinophils # (A) 0.2 k/uL (0-0.7); Eosinophils % (A) 2 %; HCT 48.9 % (39.0-53.0); HGB 16.9 gm/dL (13.0-17.5); Lymphocytes # (A) 2.5 k/uL (1.0-4.8); Lymphocytes % (A) 21 %; MCH 33.4 pg (25.0-35.0); MCHC 34.6 g/dL (31.0-37.0); MCV 96.4 fL (80.0-100.0); Mean Platelet Volume 7.9; Monocytes # (A) 0.7 k/uL (0-1.0); Monocytes % (A) 6 %; Neutrophils % (A) 68 %; Platelet Count 329 k/uL (150-450); RBC 5.07 m/uL (4.30-5.90); RDW 11.8 % (11.5-15.5); WBC 11.7 k/uL (3.8-10.6)
[2021-05-14 11:41] LABS: ALT 33 U/L (4-49); AST 24 U/L (17-59); African American GFR (CKD) >90 (>60 ml/min/1.73 sqM); Albumin 4.3 g/dL (3.5-5.0); Alkaline Phosphatase 59 U/L (38-126); Anion Gap 7 mmol/L; Blood Urea Nitrogen 12 mg/dL (9-20); Calcium 9.1 mg/dL (8.4-10.2); Carbon Dioxide 22 mmol/L (22-30); Chloride 106 mmol/L (98-107); Glucose 85 mg/dL (74-99); Magnesium 1.8 mg/dL (1.6-2.3); Non-African American GFR(CKD) >90 (>60 ml/min/1.73 sqM); Potassium 4.4 mmol/L (3.5-5.1); Sodium 135 mmol/L (137-145); Total Protein 7.1 g/dL (6.3-8.2)
--- NOTE | 2021-05-14 11:47 | XR ---
EXAMINATION TYPE: XR chest 2V DATE OF EXAM: 05/14/2021 COMPARISON: Chest x-ray 01/15/2021 HISTORY: Weakness TECHNIQUE: Frontal and lateral views of the chest are obtained. FINDINGS: There is no focal air space opacity, pleural effusion, or pneumothorax seen. The cardiac silhouette size is within normal limits. Postop changes are noted to the cervical spine. The osseous structures are intact. IMPRESSION: No acute cardiopulmonary process.
--- NOTE | 2021-05-14 11:59 | CT ---
EXAMINATION TYPE: CT brain wo con DATE OF EXAM: 05/14/2021 COMPARISON: CT dated 01/15/2021 HISTORY: Weakness and dizziness. CT DLP: 1125.4 mGycm Automated exposure control for dose reduction was used. TECHNIQUE: CT scan of the brain is performed without IV contrast administration. FINDINGS: Unremarkable morphology of the cerebral hemispheres, cerebellum and brainstem. No acute intracranial hemorrhage. No gross acute cortical infarct. No midline shift, herniation or ventriculectomy. Unremarkable juarez-white matter differentiation, basal cisterns, sella and CP angles. No gross space-o ccupying lesion, vasogenic edema or mass effect. Unremarkable orbits. Left maxillary sinus polyp/retention cyst, not completely included in the scan. Clear mastoid air cells. Unremarkable calvarial bones. IMPRESSION: No acute intracranial abnormality or gross space-occupying lesion by this nonenhanced CT scan.
[2021-05-14 12:33] LABS: Partial Thromboplastin Time 25.1 sec (22.0-30.0); Prothrombin Time 10.5 sec (9.0-12.0)
[2021-05-14 12:34] VITALS: BP 127/72; PULSE 72
== END 2021-05-14 12:34 | disposition home or self-care (01) ==
LOC: EC 09:46
DX: R42 Dizziness and giddiness (principal); F41.9 Anxiety disorder, unspecified; F17.200 Nicotine dependence, unspecified, uncomplicated; Z72.89 Other problems related to lifestyle
CPT/HCPCS: 36415; 93005; 80053; 83605; 83735; 84443; 85025; 85610; 85730; 81003; 71046; 70450; 99284; 96374; 96375; 96361; J2060; J2765

== ENCOUNTER → 2021-05-25 | Outpatient (CLI) | payer OTHER ==
--- NOTE | 2021-05-26 17:20 | MR ---
MRI CERVICAL SPINE: CLINICAL HISTORY: Cervicalgia. Headaches and neck pain with vertigo. History of neck surgery 2014. TECHNIQUE: Multiplanar, multisequence imaging of the cervical spine is performed without IV contrast. COMPARISON: None. FINDINGS: Sagittal images of the cervical spine show the craniocervical junction to appear within nor mal limits. The cervical and upper thoracic spinal cord is normal in course, caliber, and signal. V ertebral alignment is straightened. Artifact from anterior fusion plate and disc material C4-C5 level is seen. The vertebral body and intravertebral disk heights are normal above and below surgical leve ls. The bone marrow signal intensity is within normal limits. Axial images show C2-C3 level to appear within normal limits. Axial images at C3-C4 level shows mild broad-based posterior disc protrusion mildly effacing anterior thecal sac and causing mild to moderate right greater than left bilateral neural foraminal narrowing . Axial images at C4-C5 level show artifact from surgical change otherwise appear within normal limits. Axial images at C5-C6 level shows broad-based right paracentral disc protrusion facing anterior theca l sac, there is mild to moderate right greater than left bilateral neural foraminal narrowing. Axial images at C6-C7 levels show focal right paracentral disc protrusion sagittal image 11 of effaci ng the anterolateral thecal sac and causing mild right-sided neural foraminal narrowing inferiorly. Axial images at C7-T1 level appear within normal limits. IMPRESSION: Postsurgical changes C4-C5 level with satisfactory alignment. Straightening of cervical s pine with multilevel degenerative changes noted as detailed above.
== END | disposition home or self-care (01) ==
LOC: RADMRIMAIN 17:25
PROVIDERS: ATTEND Physician Assistant Medical
DX: M47.812 Spondylosis without myelopathy or radiculopathy, cervical region (principal); M50.223 Other cervical disc displacement at C6-C7 level
CPT/HCPCS: 72141

== ENCOUNTER → 2021-09-13 | Outpatient (CLI) | payer OTHER ==
[2021-09-13 09:36] VITALS: BP 131/90; PULSE 82; RESP 16
--- NOTE | 2021-09-17 10:27 | P.PAINPG ---
PQRS Measure Charge Sheet Comment: HISTORY OF PRESENT ILLNESS: 46 yr old male as a referral from [facility] in [place], [place] presents today w severe and chronic cervical pain x 10 yrs secondary to DDD, disc bulges, neuroforaminal stenoses and fact arthropathy for evaluation. Pt states his pain level is currently at 3-4/10 in intensity, stabbing pain localized to the mid to lower aspects of his cervical spine which radiates to BL shoulders. Pain escalates as high as 8/10 when provoked with rotation. Pain is relieved with PT (last in 2019) but pain relief didn't last long, chiropractic treatments in 2019 but stopped due to stiffness endured in last visit, topicals, medications (Ibuprofen), daily stretching regimen, repositioning and rest. PMH: GERD, Anxiety PSH: Cervical Fusion C4-C5 (2013), Cervical RFA (2008), L knee Surgery SH: Chews tobacco, +Cannabis use, Occasional ETOH use FH: Non contributory All: Topiramate Meds: See list REVIEW OF ORGAN SYSTEMS: CONSTITUTIONAL: No fevers or chills. No recent weight loss. NEUROLOGICAL: + numbness and tingling along the distal extremities. No seizure disorders or headaches. MUSCULOSKELETAL: + pain PSYCHIATRIC: Denies current depression or suicidal thoughts. Physical Examinations : Constitutional : Cooperative , not in acute distress . Neurologic : Cranial nerve II to XII intact. No focal neurological deficits. Psychiatric : alert & oriented x 3. Matching mood & appropriate affect. Judgment & insight intact. Musculoskeletal : Cervical Spine positive crepitation with rotation Motor strength in the deltoid and biceps: Normal right side. Normal Left side Motor strength biceps and the wrist extensors: Normal right side . Normal left side Motor strength in the triceps muscle: Normal right side. Normal left side Deep tendon reflexes: Normal at the biceps. Normal at Brachioradialis. Normal at triceps Vertebral body tenderness to deep palpation over C3, C4 Cervical facet loading test: positive bilaterally Spurling test: positive bilaterally Neck distraction test: positive bilaterally Franco sign: positive bilaterally Lumbar spine Motor strength lower extremities ,thigh and legs 5/5 Right side , 5/5 Left side Deep tendon reflexes : Normal Knee Jerk. Normal Ankle Jerk Vertebral body tenderness over Lumbar facet Loading Test: positive Right / positive Left Range of motion of the lumbar spine Flexion 30 degrees, extension 10 degrees Straight Leg Raise test: Left/ Right positive at degree Perry test: positive right / positive left. Severe tenderness over the Sacroiliac joint on the Right / Left sides Gaenslen test: positive bilaterally Seated flexion test: positive bilaterally. Sacral spine : Severe tenderness over the Sacroiliac joint: right side / left side Range of motion: Flexion of the lumbar spine <60 degrees Range of motion: Extension of the lumbar spine <20 degrees Gaenslen's Test positive Rick's Test positive Perry test: positive right side / left side Thigh Thrust Test Sacral Thrust Test Imaging: MRI without contrast of the cervical spine from 05/25/21 reviewed Assessment/ Plan : Cervical DDD Recommendation of REVA C3-C4. May need a series of injections, up to 3 within a six-month timeframe, for optimal pain relief. Risks, benefits of procedure discussed and patient verbalized understanding. Denies aspirin or anti- coagulant use or medical history of diabetes. Protocol for discontinuation/ continuation of medications rubi procedure discussed. All questions answered. I have spent greater than 30 minutes on patient care today. Dr Motley was available by phone for the evaluation of this patient. The time was used to review the medical records including relevant urine studies and Prescription history (MAPs), review of the available imaging, evaluation and examination of the patient, coordination of care with the medical staff and if applicable referring physicians, as well as creation of the medical record - Pain Location Neck Non-Pharmacological Interventions: Chiropractic Treatment, Environmental Control, Heat, Home Exercise, Ice, Physical Therapy, Stretching Pharmacological Interventions: PRN Medication, Topical Medication PQRS Narrative: Smoking Status Current some day smoker Home Medications: Ambulatory Orders Fluticasone Nasal [place] [Flonase Nasal [place]] 2 spray EA NOSTRIL DAILY PRN 06/05/20 Ibuprofen [Motrin Ib] 800 mg PO Q6H PRN 05/14/21 Controlled Substance Measures - Controlled Substance Measures Is patient prescribed a controlled substance at discharge?: No
== END ==
LOC: PNWHC3 09:05
PROVIDERS: ATTEND Specialist
DX: M54.59 Other low back pain (principal); M54.12 Radiculopathy, cervical region; F41.9 Anxiety disorder, unspecified; Z88.8 Allergy status to other drugs, medicaments and biological substances; F17.200 Nicotine dependence, unspecified, uncomplicated
CPT/HCPCS: 99211

== ENCOUNTER 2021-10-16 06:11 | Emergency (ER) | payer OTHER ==
[2021-10-16] MEDS ORDERED: MECLIZINE 12.5 MG TAB PO STA (06:48)
[2021-10-16] MEDS ORDERED: SODIUM CHLORIDE 0.9% 1,000 ML IV STA (06:48)
--- NOTE | 2021-10-16 06:48 | ED ---
General Adult HPI - General Stated complaint: dizziness Time Seen by Provider: 10/16/21 06:15 Source: patient, RN notes reviewed Mode of arrival: ambulatory Limitations: no limitations - History of Present Illness Initial comments: 46-year-old male presents emergency Department chief complaint of feeling lightheaded. Patient states he has not followed last couple days. Patient does admit that with the last one week he was diagnosed with COVID-19. Patient states of his symptoms are improving states he feels like his tremoring but he does not visually see this. Patient denies any chest pain or shortness breath did have slight nausea without vomiting. No dysuria no hematuria no diarrhea no constipation. Patient feels dehydrated. Denies headache no visual disturbance no focal weakness. - Related Data Home Medications Medication Instructions Recorded Confirmed Fluticasone Nasal [place] [Flonase 2 spray EA NOSTRIL DAILY PRN 06/05/20 05/14/21 Nasal [place]] Ibuprofen [Motrin Ib] 800 mg PO Q6H PRN 05/14/21 05/14/21 Previous Rx's Medication Instructions Recorded Meclizine [Antivert] 25 mg PO TID PRN #15 tab 10/16/21 Allergies Allergy/AdvReac Type Severity Reaction Status Date / Time topiramate [From Topamax] AdvReac RAPID Verified 10/16/21 06:37 HEART BEAT Review of Systems ROS Statement: Those systems with pertinent positive or pertinent negative responses have been documented in the HPI. ROS Other: All systems not noted in ROS Statement are negative. Past Medical History Past Medical History: GERD/Reflux Additional Past Medical History / Comment(s): chews tobacco History of Any Multi-Drug Resistant Organisms: None Reported Past Surgical History: Orthopedic Surgery Additional Past Surgical History / Comment(s): neck fusion, left knee surgery Past Anesthesia/Blood Transfusion Reactions: No Reported Reaction Smoking Status: Current every day smoker General Exam Limitations: no limitations General appearance: alert, in no apparent distress Head exam: Present: atraumatic, normocephalic, normal inspection Eye exam: Present: normal appearance, PERRL, EOMI. Absent: scleral icterus, conjunctival injection, periorbital swelling ENT exam: Present: normal exam, normal oropharynx, mucous membranes moist Neck exam: Present: normal inspection, full ROM. Absent: tenderness, meningismus, lymphadenopathy Respiratory exam: Present: normal lung sounds bilaterally. Absent: respiratory distress, wheezes, rales, rhonchi, stridor Cardiovascular Exam: Present: regular rate, normal rhythm, normal heart sounds. Absent: systolic murmur, diastolic murmur, rubs, gallop, clicks GI/Abdominal exam: Present: soft, normal bowel sounds. Absent: distended, tenderness, guarding, rebound, rigid Extremities exam: Present: normal inspection, full ROM, normal capillary refill. Absent: tenderness, pedal edema, joint swelling, calf tenderness Neurological exam: Present: alert, oriented X3, CN II-XII intact Skin exam: Present: warm, dry, intact, normal color. Absent: rash Course Vital Signs 10/16/21 06:35 Temperature 97.8 F Pulse Rate 75 Respiratory 18 Rate Blood Pressure 141/92 O2 Sat by Pulse 98 Oximetry Medical Decision Making - Medical Decision Making Patient was reevaluated after fluids, and very does admit that he feels improved. This may relate from dehydration, vertigo-type symptoms. Patient we discharged in stable condition return parameters were discussed. - Lab Data Result diagrams: 10/16/21 07:06 10/16/21 07:06 Lab Results 10/16/21 10/16/21 10/16/21 Range/Units 07:06 07:06 07:06 WBC 7.8 (3.8-10.6) k/uL RBC 5.16 (4.30-5.90) m/uL Hgb 15.8 (13.0-17.5) gm/dL Hct 48.6 (39.0-53.0) % MCV 94.2 (80.0-100.0) fL MCH 30.7 (25.0-35.0) pg MCHC 32.5 (31.0-37.0) g/dL RDW 11.8 (11.5-15.5) % Plt Count 321 (150-450) k/uL MPV 7.7 Neutrophils % 47 % Lymphocytes % 35 % Monocytes % 9 % Eosinophils % 5 % Basophils % 1 % Neutrophils # 3.7 (1.3-7.7) k/uL Lymphocytes # 2.8 (1.0-4.8) k/uL Monocytes # 0.7 (0-1.0) k/uL Eosinophils # 0.4 (0-0.7) k/uL Basophils # 0.1 (0-0.2) k/uL Sodium 139 (137-145) mmol/L Potassium 4.6 (3.5-5.1) mmol/L Chloride 106 (98-107) mmol/L Carbon Dioxide 24 (22-30) mmol/L Anion Gap 9 mmol/L BUN 12 (9-20) mg/dL Creatinine 0.79 (0.66-1.25) mg/dL Est GFR (CKD-EPI)AfAm >90 (>60 ml/min/1.73 sqM) Est GFR (CKD-EPI)NonAf >90 (>60 ml/min/1.73 sqM) Glucose 96 (74-99) mg/dL Calcium 9.3 (8.4-10.2) mg/dL Magnesium 1.7 (1.6-2.3) mg/dL Total Bilirubin 0.8 (0.2-1.3) mg/dL AST 30 (17-59) U/L ALT 43 (4-49) U/L Alkaline Phosphatase 62 (38-126) U/L Troponin I <0.012 (0.000-0.034) ng/mL Total Protein 7.0 (6.3-8.2) g/dL Albumin 4.4 (3.5-5.0) g/dL Disposition Clinical Impression: Dizziness, COVID-19 Disposition: HOME SELF-CARE Condition: Stable Instructions (If sedation given, give patient instructions): Dizziness (ED) Additional Instructions: Please return to the Emergency Department if symptoms worsen or any other concerns. Prescriptions: Meclizine [Antivert] 25 mg PO TID PRN #15 tab PRN Reason: Vertigo Is patient prescribed a controlled substance at d/c from ED?: No Referrals: [facility],Clinic [Primary Care Provider] - 1-2 days Time of Disposition: 08:23
[2021-10-16 07:20] LABS: Basophils # (A) 0.1 k/uL (0-0.2); Basophils % (A) 1 %; Eosinophils # (A) 0.4 k/uL (0-0.7); Eosinophils % (A) 5 %; HCT 48.6 % (39.0-53.0); HGB 15.8 gm/dL (13.0-17.5); Lymphocytes # (A) 2.8 k/uL (1.0-4.8); Lymphocytes % (A) 35 %; MCH 30.7 pg (25.0-35.0); MCHC 32.5 g/dL (31.0-37.0); MCV 94.2 fL (80.0-100.0); Mean Platelet Volume 7.7; Monocytes # (A) 0.7 k/uL (0-1.0); Monocytes % (A) 9 %; Neutrophils # (A) 3.7 k/uL (1.3-7.7); Neutrophils % (A) 47 %; Platelet Count 321 k/uL (150-450); RBC 5.16 m/uL (4.30-5.90); RDW 11.8 % (11.5-15.5); WBC 7.8 k/uL (3.8-10.6)
[2021-10-16 07:43] LABS: ALT 43 U/L (4-49); AST 30 U/L (17-59); African American GFR (CKD) >90 (>60 ml/min/1.73 sqM); Albumin 4.4 g/dL (3.5-5.0); Alkaline Phosphatase 62 U/L (38-126); Anion Gap 9 mmol/L; Blood Urea Nitrogen 12 mg/dL (9-20); Calcium 9.3 mg/dL (8.4-10.2); Carbon Dioxide 24 mmol/L (22-30); Chloride 106 mmol/L (98-107); Glucose 96 mg/dL (74-99); Magnesium 1.7 mg/dL (1.6-2.3); Non-African American GFR(CKD) >90 (>60 ml/min/1.73 sqM); Potassium 4.6 mmol/L (3.5-5.1); Sodium 139 mmol/L (137-145); Total Bilirubin 0.8 mg/dL (0.2-1.3)
[2021-10-16 09:04] VITALS: BP 135/83; PULSE 71; RESP 24; TEMP 97.6
== END 2021-10-16 09:00 | disposition home or self-care (01) ==
LOC: EC 06:11
DX: U07.1 COVID-19 (principal); R42 Dizziness and giddiness; F17.200 Nicotine dependence, unspecified, uncomplicated; Z88.8 Allergy status to other drugs, medicaments and biological substances
CPT/HCPCS: 36415; 80053; 83735; 84484; 85025; 93005; 96360; 99284

== ENCOUNTER → 2021-11-08 | Day surgery (SDC) | payer OTHER ==
[2021-11-07 12:50] VITALS: BMI 32.9
[~2021-11-08] MED LIST: LACTATED RINGERS 1,000 ML IV SCH; LIDOCAINE 1% (10MG/ML) FOR IV START INTRADERMA PRN
[2021-11-08 09:43] VITALS: BP 144/77; PULSE 66; RESP 18; TEMP 96.8
== END ==
LOC: ORPAIN 08:23
DX: M47.22 Other spondylosis with radiculopathy, cervical region (principal); K21.9 Gastro-esophageal reflux disease without esophagitis; M19.90 Unspecified osteoarthritis, unspecified site; G47.33 Obstructive sleep apnea (adult) (pediatric); Z91.048 Other nonmedicinal substance allergy status; Z88.6 Allergy status to analgesic agent; Z88.8 Allergy status to other drugs, medicaments and biological substances

== ENCOUNTER 2021-11-24 05:39 | Emergency (ER) | payer OTHER ==
[2021-11-24 05:48] VITALS: BP 140/85; PULSE 63; RESP 15; TEMP 98.5
[2021-11-24 06:37] LABS: Glucose,Whole Blood 117 mg/dL (70-110)
[2021-11-24 06:53] LABS: Basophils # (A) 0.1 k/uL (0-0.2); Basophils % (A) 1 %; Eosinophils # (A) 0.4 k/uL (0-0.7); Eosinophils % (A) 5 %; HCT 45.7 % (39.0-53.0); HGB 15.7 gm/dL (13.0-17.5); Lymphocytes # (A) 3.2 k/uL (1.0-4.8); Lymphocytes % (A) 32 %; MCHC 34.3 g/dL (31.0-37.0); MCV 96.1 fL (80.0-100.0); Mean Platelet Volume 7.8; Monocytes # (A) 0.7 k/uL (0-1.0); Monocytes % (A) 8 %; Neutrophils # (A) 5.3 k/uL (1.3-7.7); Neutrophils % (A) 53 %; Platelet Count 340 k/uL (150-450); RBC 4.75 m/uL (4.30-5.90); RDW 12.6 % (11.5-15.5); WBC 9.9 k/uL (3.8-10.6)
[2021-11-24 07:01] LABS: ALT 28 U/L (4-49); AST 22 U/L (17-59); African American GFR (CKD) >90 (>60 ml/min/1.73 sqM); Albumin 4.2 g/dL (3.5-5.0); Alkaline Phosphatase 65 U/L (38-126); Anion Gap 10 mmol/L; Blood Urea Nitrogen 12 mg/dL (9-20); Calcium 8.8 mg/dL (8.4-10.2); Carbon Dioxide 21 mmol/L (22-30); Chloride 105 mmol/L (98-107); Glucose 122 mg/dL (74-99); Non-African American GFR(CKD) >90 (>60 ml/min/1.73 sqM); Potassium 4.3 mmol/L (3.5-5.1); Sodium 136 mmol/L (137-145); Total Protein 6.3 g/dL (6.3-8.2)
[2021-11-24] MEDS ORDERED: MECLIZINE 12.5 MG TAB PO STA (07:48)
[2021-11-24] MEDS ORDERED: SODIUM CHLORIDE 0.9% 1,000 ML IV STA (07:48)
--- NOTE | 2021-11-24 08:09 | ED ---
General Adult HPI - General Chief complaint: Weakness Stated complaint: weakness Time Seen by Provider: 11/24/21 07:25 Source: patient Mode of arrival: ambulatory Limitations: no limitations - History of Present Illness Initial comments: Patient is a 46-year-old male who presents emergency Department complaining of shoulder stiffness, as well as a feeling of lightheadedness. Patient did have Covid 3 weeks ago. States symptoms resolved. Had an epidural for his chronic neck pain on Friday. States that he thinks that today he is began having mild lightheadedness sensations. States he feels shaky and mildly weak. Denies any new neck stiffness or pain. Denies any headaches. Denies blurry vision. Denies any weakness or numbness otherwise. Denies any chest pain, shortness breath, fevers, chills, cough. Denies any abdominal pain, nausea, vomiting. Patient otherwise has no acute complaints. Presents for further evaluation at this time. Describes lightheadedness of the head heaviness sensation. No vertiginous symptoms. No upper respiratory illness symptoms. - Related Data Home Medications Medication Instructions Recorded Confirmed Fluticasone Nasal [place] [Flonase 2 spray EA NOSTRIL DAILY PRN 06/05/20 11/20/21 Nasal [place]] Ibuprofen [Motrin Ib] 800 mg PO Q6H PRN 05/14/21 11/20/21 Calcium Carbonate [Tums] 500 mg PO DIRECTED PRN 11/07/21 11/20/21 Magnesium (Unknown Dose) 1 tab PO DAILY 11/07/21 11/20/21 Multivitamins, Thera [Multivitamin 1 tab PO DAILY 11/07/21 11/20/21 (formulary)] Vitamin B-12 (Unknown Dose) 1 tab PO DAILY 11/07/21 11/20/21 Vitamin C (Unknown Dose) 1 tab PO DAILY 11/07/21 11/20/21 Vitamin D (Unknown Dose) 1 cap PO DAILY 11/07/21 11/20/21 Pseudoephedrine 12Hr [Sudafed 12 120 mg PO Q12HR PRN 11/19/21 11/20/21 Hour] Vitamin C(Dose Unknown) 1 tab PO DAILY 11/19/21 11/20/21 Baclofen 10 mg PO BID 11/20/21 11/20/21 Allergies Allergy/AdvReac Type Severity Reaction Status Date / Time cat dander Allergy Unknown Dyspnea Verified 11/24/21 05:48 mold Allergy Unknown Dyspnea Verified 11/24/21 05:48 morphine AdvReac Unknown Nausea Verified 11/24/21 05:48 topiramate [From Topamax] AdvReac RAPID Verified 11/24/21 05:48 HEART BEAT dust mites Allergy Unknown allergy Uncoded 11/24/21 05:48 symptoms Review of Systems ROS Statement: Those systems with pertinent positive or pertinent negative responses have been documented in the HPI. Review of Systems: CONST: Denies fever EYES: Denies blurry vision ENT: Denies nasal congestion C/V: Denies Chest pain RESP: Denies shortness of breath GI: Denies abdominal pain : Denies dysuria SKIN: Denies rash. MSK: Endorses shoulder stiffness NEURO: Denies headache ROS Other: All systems not noted in ROS Statement are negative. Past Medical History Past Medical History: GERD/Reflux, Osteoarthritis (OA), Sleep Apnea/CPAP/BIPAP Additional Past Medical History / Comment(s): new c-pap machine History of Any Multi-Drug Resistant Organisms: None Reported Past Surgical History: Ear Surgery, Hernia Repair, Orthopedic Surgery Additional Past Surgical History / Comment(s): cervical fusion, left knee arthroscopy x 2, tendon repair rt hand., sinus surgery, Past Anesthesia/Blood Transfusion Reactions: No Reported Reaction Additional Past Anesthesia/Blood Transfusion Reaction / Comment(s): states "I talk crazy after anesthesia" Past Psychological History: Anxiety, Depression Smoking Status: Current every day smoker - Past Family History Mother Family Medical History: Cancer General Exam - General Exam Comments Initial Comments: General: Appears in no acute distress. HEAD: Normal with no signs of head trauma. EYES: PERRLA, EOMI, conjunctiva normal, no discharge. Pupils 3 mm and equal bilaterally. ENT: Hearing grossly intact, normal oropharynx. RESPIRATORY: Clear breath sounds bilaterally. No wheezes, rales, or rhonchi. C/V: Regular rate and rhythm. S1 and S2 auscultated, no edema, peripheral pulses 2+ and intact throughout ABD: Abd is soft, nontender, nondistended EXT: Normal range of motion, no obvious deformity. No midline cervical, thoracic, lumbar spine tenderness to palpation. No cervical stiffness appreciated. Mild tenderness to palpation over the bilateral trapezius muscles. Epidural site appears clean. SKIN: No rashes or lesions observed on exposed skin. NEURO: Alert and oriented x 4. Cranial nerves II-XII intact. No focal sensory or strength deficits. NIH of 0. GCS is 15. Able to ambulate without difficulty. Limitations: no limitations Course Vital Signs 11/24/21 05:45 Temperature 98.5 F Pulse Rate 63 Respiratory 15 Rate Blood Pressure 140/85 O2 Sat by Pulse 98 Oximetry Medical Decision Making - Medical Decision Making Based on patient's presentation and physical exam, he is concerned regarding his symptoms. I evaluated him and he was placed in a room. Vital signs are within normal limits. Neuro exam is unremarkable. I did offer the patient's CT imaging which she accepted. He will also be hydrated. Both, evaluated him, labs were already drawn. Does appear he is mildly dehydrated with a slightly elevated lactic acid of 2.5. This is addressed with 1 L fluid bolus. We will trial meclizine as well. Patient was in agreement this plan. No signs or symptoms of infection at this time. Troponin was undetectable. EKG was remarkable for no signs of acute ischemia. Chest x-ray showed no acute cardiopulmonary process. CT of the brain and C- spine showed no acute process or injury. Covid is negative. On reevaluation, patient is feeling improved. His ambulate without difficulty. Symptoms have resolved. But like to go home. I did discuss with him it does appear he is dehydrated. Recommended good fluid hydration, as well as follow-up with his PCP next week. He was in agreement this plan. Vitals remained within normal limits. I instructed the patient to follow up with their PCP in the next 1-3 days. I explained that the patient should return to the emergency department if they experience any worsening symptoms. Strict return precautions were discussed with the patient. The patient expressed understanding of these instructions. I answered all questions that the patient had. The patient was discharged home in good condition with their prescriptions and follow up information. - Lab Data Result diagrams: 11/24/21 06:35 11/24/21 06:35 Lab Results 11/24/21 11/24/21 11/24/21 Range/Units 06:35 06:35 06:35 WBC 9.9 (3.8-10.6) k/uL RBC 4.75 (4.30-5.90) m/uL Hgb 15.7 (13.0-17.5) gm/dL Hct 45.7 (39.0-53.0) % MCV 96.1 (80.0-100.0) fL MCH 33.0 (25.0-35.0) pg MCHC 34.3 (31.0-37.0) g/dL RDW 12.6 (11.5-15.5) % Plt Count 340 (150-450) k/uL MPV 7.8 Neutrophils % 53 % Lymphocytes % 32 % Monocytes % 8 % Eosinophils % 5 % Basophils % 1 % Neutrophils # 5.3 (1.3-7.7) k/uL Lymphocytes # 3.2 (1.0-4.8) k/uL Monocytes # 0.7 (0-1.0) k/uL Eosinophils # 0.4 (0-0.7) k/uL Basophils # 0.1 (0-0.2) k/uL Sodium 136 L (137-145) mmol/L Potassium 4.3 (3.5-5.1) mmol/L Chloride 105 (98-107) mmol/L Carbon Dioxide 21 L (22-30) mmol/L Anion Gap 10 mmol/L BUN 12 (9-20) mg/dL Creatinine 0.75 (0.66-1.25) mg/dL Est GFR (CKD-EPI)AfAm >90 (>60 ml/min/1.73 sqM) Est GFR (CKD-EPI)NonAf >90 (>60 ml/min/1.73 sqM) Glucose 122 H (74-99) mg/dL POC Glucose (mg/dL) (70-110) mg/dL POC Glu Pin Worker ID Lactic Ac Sepsis Rflx Plasma Lactic Acid Yves 2.5 H* (0.7-2.0) mmol/L Calcium 8.8 (8.4-10.2) mg/dL Total Bilirubin 1.0 (0.2-1.3) mg/dL AST 22 (17-59) U/L ALT 28 (4-49) U/L Alkaline Phosphatase 65 (38-126) U/L Troponin I (0.000-0.034) ng/mL Total Protein 6.3 (6.3-8.2) g/dL Albumin 4.2 (3.5-5.0) g/dL Coronavirus (PCR) (Not Detectd) 11/24/21 11/24/21 11/24/21 Range/Units 06:35 06:37 07:15 WBC (3.8-10.6) k/uL RBC (4.30-5.90) m/uL Hgb (13.0-17.5) gm/dL Hct (39.0-53.0) % MCV (80.0-100.0) fL MCH (25.0-35.0) pg MCHC (31.0-37.0) g/dL RDW (11.5-15.5) % Plt Count (150-450) k/uL MPV Neutrophils % % Lymphocytes % % Monocytes % % Eosinophils % % Basophils % % Neutrophils # (1.3-7.7) k/uL Lymphocytes # (1.0-4.8) k/uL Monocytes # (0-1.0) k/uL Eosinophils # (0-0.7) k/uL Basophils # (0-0.2) k/uL Sodium (137-145) mmol/L Potassium (3.5-5.1) mmol/L Chloride (98-107) mmol/L Carbon Dioxide (22-30) mmol/L Anion Gap mmol/L BUN (9-20) mg/dL Creatinine (0.66-1.25) mg/dL Est GFR (CKD-EPI)AfAm (>60 ml/min/1.73 sqM) Est GFR (CKD-EPI)NonAf (>60 ml/min/1.73 sqM) Glucose (74-99) mg/dL POC Glucose (mg/dL) 117 H (70-110) mg/dL POC Glu Pin Worker ID Boni Cardenas Lactic Ac Sepsis Rflx Y Plasma Lactic Acid Yves (0.7-2.0) mmol/L Calcium (8.4-10.2) mg/dL Total Bilirubin (0.2-1.3) mg/dL AST (17-59) U/L ALT (4-49) U/L Alkaline Phosphatase (38-126) U/L Troponin I <0.012 (0.000-0.034) ng/mL Total Protein (6.3-8.2) g/dL Albumin (3.5-5.0) g/dL Coronavirus (PCR) (Not Detectd) 11/24/21 Range/Units 09:03 WBC (3.8-10.6) k/uL RBC (4.30-5.90) m/uL Hgb (13.0-17.5) gm/dL Hct (39.0-53.0) % MCV (80.0-100.0) fL MCH (25.0-35.0) pg MCHC (31.0-37.0) g/dL RDW (11.5-15.5) % Plt Count (150-450) k/uL MPV Neutrophils % % Lymphocytes % % Monocytes % % Eosinophils % % Basophils % % Neutrophils # (1.3-7.7) k/uL Lymphocytes # (1.0-4.8) k/uL Monocytes # (0-1.0) k/uL Eosinophils # (0-0.7) k/uL Basophils # (0-0.2) k/uL Sodium (137-145) mmol/L Potassium (3.5-5.1) mmol/L Chloride (98-107) mmol/L Carbon Dioxide (22-30) mmol/L Anion Gap mmol/L BUN (9-20) mg/dL Creatinine (0.66-1.25) mg/dL Est GFR (CKD-EPI)AfAm (>60 ml/min/1.73 sqM) Est GFR (CKD-EPI)NonAf (>60 ml/min/1.73 sqM) Glucose (74-99) mg/dL POC Glucose (mg/dL) (70-110) mg/dL POC Glu Pin Worker ID Lactic Ac Sepsis Rflx Plasma Lactic Acid Yves (0.7-2.0) mmol/L Calcium (8.4-10.2) mg/dL Total Bilirubin (0.2-1.3) mg/dL AST (17-59) U/L ALT (4-49) U/L Alkaline Phosphatase (38-126) U/L Troponin I (0.000-0.034) ng/mL Total Protein (6.3-8.2) g/dL Albumin (3.5-5.0) g/dL Coronavirus (PCR) Not Detected (Not Detectd) - EKG Data -: EKG Interpreted by Me EKG Comments: 12-lead Electrocardiogram Interpretation Note EKG was reviewed and interpreted by myself. 12-lead ECG performed at 0645 is interpreted by me as revealing normal sinus rhythm at a rate of 61 beats per minute. Flanagan is normal. [place] interval is 182 ms, QRS duration is 92 ms, QTc is 424 ms.. There were no ST or T wave abnormalities to suggest myocardial ischemia or injury. R wave progression across the precordium was satisfactory. By my interpretation this EKG is non-diagnostic for acute ischemia. Disposition Clinical Impression: Muscle spasm, Lightheaded, Dehydration Disposition: HOME SELF-CARE Condition: Good Is patient prescribed a controlled substance at d/c from ED?: No Referrals: [facility],Clinic [Primary Care Provider] - 1-2 days Time of Disposition: 09:25
--- NOTE | 2021-11-24 08:33 | XR ---
EXAMINATION TYPE: XR chest 1V portable DATE OF EXAM: 11/24/2021 Comparison: 05/14/2021 Clinical History: 46-year-old male tightness Findings: The heart is normal in size. Aorta and pulmonary vasculature within normal limits. Mild interstitial prominence. No consolidation or pleural effusion. Impression: Interstitial prominence could reflect bronchitis or asthma. No focal infiltrate.
--- NOTE | 2021-11-24 08:56 | CT ---
EXAMINATION TYPE: CT brain cspine wo con DATE OF EXAM: 11/24/2021 COMPARISON: Brain 05/14/2021 HISTORY: 46-year-old male tightness, pain, [place]ake[place] CT DLP: 1711.5 mGycm Automated exposure control for dose reduction was used. Technique: Examination of the head was done in axial plane without intravenous contrast. Coronal and sagittal reconstructions performed. CT of the cervical spine was obtained in axial plane without intravenous injection of contrast mater ial. Coronal and sagittal reformatted images were obtained from the axial views for evaluation of f ractures, spinal alignment and canal. FINDINGS: Head: There is no evidence of acute intracranial hemorrhage, acute ischemic changes, mass, mass-effect, or extra-axial fluid collection. There is no effacement of cerebral sulci or basal subarachnoid cister ns. There is no hydrocephalus. There is no midline shift. Delgado-white matter distinction is preserv ed. 2.3 cm mucosal retention cyst redemonstrated floor the left maxillary sinus. Mastoid air cells are pn eumatized. Trace mucosal thickening ethmoid air cells. Orbits and globes appear intact. Cervical spine: No craniocervical junction abnormality, predental space widening, or prevertebral soft tissue swellin g. Status post C4-C5 ACDF. Prominent anterior endplate spondylosis and associated mild to moderate degen erative disc disease below at C5-C6. Assessment of the spinal canal from C5-C6 and below is limited due to artifact from the patient's andres ulders. No acute fracture of the cervical spine. Mild neural foraminal narrowing on both sides at C3-C4 and on the right at C5-C6. Sagittal and coronal reformatted images confirm above findings. COMBINED IMPRESSION: 1. No acute intracranial abnormality seen. 2. No acute fracture or malalignment of the cervical spine. Mild spondylotic change. Previous C4-C5 A CDF.
== END 2021-11-24 09:51 | disposition home or self-care (01) ==
LOC: EC 05:39
DX: E86.0 Dehydration (principal); M62.838 Other muscle spasm; M19.90 Unspecified osteoarthritis, unspecified site; Z86.16 Personal history of COVID-19; F17.200 Nicotine dependence, unspecified, uncomplicated; Z20.822 Contact with and (suspected) exposure to COVID-19; Z91.014 Allergy to mammalian meats; Z91.048 Other nonmedicinal substance allergy status; Z88.6 Allergy status to analgesic agent; Z88.8 Allergy status to other drugs, medicaments and biological substances
CPT/HCPCS: 36415; 70450; 71045; 72125; 80053; 83605; 84484; 85025; 87635; 93005; 96360; 99284

== ENCOUNTER 2021-12-25 06:27 | Day surgery (SDC) | payer OTHER ==
[2021-12-24 11:02] VITALS: BMI 31.2
[~2021-12-25 06:27] MED LIST changes: -LIDOCAINE 1% (10MG/ML) FOR IV START INTRADERMA PRN
[2021-12-25 06:57] VITALS: TEMP 97.4
[2021-12-25] MEDS ORDERED: DEXAMETHASONE SOD PHOSPHATE 10 MG/ML 1 ML VIAL ONE (07:26)
[2021-12-25] MEDS ORDERED: MIDAZOLAM 2 MG/2 ML VIAL ONE (07:26)
[2021-12-25] MEDS ORDERED: fentaNYL (PF) 50 MCG/ML 2 ML AMP ONE (07:26)
[2021-12-25] MEDS ORDERED: IOPAMIDOL M200 10 ML VIAL ONE (07:26)
--- NOTE | 2021-12-25 07:39 | P.PCN ---
Date of Procedure: 12/25/21 Surgeon: Laura Kimble Pathology: none sent Condition: stable Disposition: PACU Description of Procedure: PROCEDURE 1. Cervical epidural steroid injection under fluoroscopic guidance, C7-T1 left paramedian approach. 2. Cervical epidurogram. : PREOPERATIVE DIAGNOSIS: Cervical radiculopathy, cervical spondylosis without myelopathy POSTOPERATIVE DIAGNOSIS: : Same as above ANESTHESIA: Local anesthesia with 1% lidocaine and IV moderate conscious sedation with Versed and Fentanyl . EBL 0 PROCEDURE INDICATION: The patient with neck pain and radiculopathy unresponsive to conservative treatment consents for procedure. PROCEDURE DESCRIPTION / TECHNIQUE: The patient was seen and identified in the preoperative area. Risks, benefits, complications, including but not limited to infections ,bleeding , allergic reactions to the medications ,and not complete pain relief, and alternatives were discussed with the patient, the patient agreed to proceed with the procedure and signed the consent. Patient was taken to the OR and time out was completed. The patient was placed in the prone position on the procedure table. A pillow was placed under the patients chest to increase the flexion of the cervical spine . The cervical area was prepped and draped in the usual sterile fashion. Vital signs were closely monitored during the procedure. Conscious sedation was used during the procedure to decrease patients anxiety. Using anterior-posterior fluoroscopy, the C7-T1 interlaminar space was identified and the skin over this site was marked and then infiltrated with 1% lidocaine subcutaneously. Subsequently, a 20-gauge 3-1/2-inch Tuohy epidural needle was inserted and advanced toward the epidural space by means of loss of resistance to air technique and guided by AP and lateral fluoroscopy. The needle tip contacted the lamina of T1 vertebra first, then it was walked off bone and into the epidural space using the loss of to air and fluoroscopic guidance to identify the epidural space. The correct needle position in the epidural space was verified with the injection of 1 mL of the water soluble contrast dye Isovue and observing an excellent epidurogram with the epidural spread of the dye, after negative aspiration for blood and CSF and in the absence of paresthesias. Again after negative aspiration, a 2 ml mixture containing 10 mg of Decadron and 1 ml of preservative free Normal Saline solution was injected and a washout of epidurogram was seen. Needle was withdrawn intact, skin was cleansed, and bandages were applied. A copy of the needle placement picture was saved to the fluoroscopy machine. Sedation time:[id number]
[2021-12-25] MEDS ORDERED: IV FLUID CONTINUATION 1,000 ML IV ONE (07:43)
[2021-12-25 07:46] VITALS: RESP 16
[2021-12-25 07:59] VITALS: BP 143/79; PULSE 72
--- NOTE | 2021-12-25 09:46 | FL ---
Intraoperative/procedural fluoroscopic services were provided. Total fluoroscopy time is 7 seconds wi th a total of 1 submitted images to PACS. Please see the operative/procedural note for further detail s.
== END 2021-12-25 08:15 | disposition home or self-care (01) ==
LOC: ORPAIN 06:27
PROVIDERS: ATTEND Anesthesiology
DX: M47.22 Other spondylosis with radiculopathy, cervical region (principal); Z88.8 Allergy status to other drugs, medicaments and biological substances
CPT/HCPCS: 62321; J2250; J1100; J3010; Q9966

== ENCOUNTER → 2022-01-07 | Outpatient (CLI) | payer OTHER ==
[2022-01-07 08:12] VITALS: BP 137/87; PULSE 83; RESP 18; TEMP 98.1
--- NOTE | 2022-01-07 14:40 | P.PAINPG ---
PQRS Measure Charge Sheet Comment: A 46 yr old male with a history of severe and chronic neck pain secondary to cervical degenerative disc diseases and spondylosis with facet arthropathy without myelopathy presents today for evaluation s/p L Paramedian DAGO C7-T1. Pt states he experienced 90% pain relief x 2 wks s/p procedure. Pain level is currently at 8/10 in intensity, constant, localized in the R lower aspect of his cervical spine, stabbing in character w shooting towards the R side of neck. Pain is provoked by R rotation. Pain is alleviated with home based stretches daily, massages from his , heat, medications (Ibuprofen, muscle relaxers), topicals, laying supine, repositioning and rest. Interventional pain procedures completed include L Paramedian DAGO C7-T1 x1, C3- C4 x1. Patient is currently on muscle relaxers Patient denies any side effects of the medication(s), denies excessive drowsiness or sleepiness, denies suicidal ideation and reports that the current pain medication is helping to control the pain and improve activities of daily living. Patient denies any motor or sensory deficits. Patient denies any fever or night sweats, denies any change in the bowel movements or urination. Physical Examination: -Constitutional: Cooperative. Not in acute distress . - Neurologic: Cranial nerve II to XII intact. No focal neurological deficits. - Psychatric: Alert & oriented x 3. Matching mood & appropriate affect. Judgment and insight intact. - Musculoskeletal: Cervical spine: Muscle bulk/ tone/ strength in the bilateral upper extremities normal Vertebral body tenderness to palpation over C7 Spurling test positive Distraction test positive Facet loading test positive Thoracic spine Muscle bulk / tone/ strength in the bilateral paraspinal muscles normal Vertebral body tender to palpation over Facet loading test positive Lumbar spine: Motor bulk/ tone/ strength lower extremities , thigh and legs : 5/5 Deep tendon reflexes : Normal Knee Jerk. Normal Ankle Jerk . Vertebral body tenderness to palpation over Lumbar Facet Loading Test positive Straight Leg Raise: positive at 30 degrees right side/ left side Gaenslen's Test positive Sacral spine : Severe tenderness over the Sacroiliac joint: right side / left side Range of motion: Flexion of the lumbar spine <60 degrees Range of motion: Extension of the lumbar spine <20 degrees Gaenslen's Test positive Rick's Test positive Perry test: positive right side / left side Thigh Thrust Test Sacral Thrust Test Assessment and plan: Chronic neck pain secondary to cervical degenerative disc disease, spondylosis with facet arthropathy without myelopathy Recommendation of DAGO C7-T1 #3. May need a series of injections, up to 3 within 6 mo, or 4 within a 12 mo time frame, for optimal pain relief. Risks, benefits of procedure discussed and pt verbalized understanding. Protocol for discontinuation/ continuation of medications rubi procedure discussed. All patient questions answered I have spent less than 30 minutes on patient care today. Dr Motley was available by phone for the evaluation of this patient. The time was used to review the medical records including relevant urine studies and Prescription history (MAPs), review of the available imaging, evaluation and examination of the patient, coordination of care with the medical staff and if applicable referring physicians, as well as creation of the medical record - Pain Location Right Shoulder Non-Pharmacological Interventions: Heat, Massage Pharmacological Interventions: Epidural, Medication, PRN Medication, Topical Medication PQRS Narrative: Smoking Status Current some day smoker Hx Alcohol Use (MH) Yes: occasional Home Medications: Ambulatory Orders Fluticasone Nasal [place] [Flonase Nasal [place]] 2 spray EA NOSTRIL DAILY PRN 06/05/20 Ibuprofen [Motrin Ib] 800 mg PO Q6H PRN 05/14/21 Calcium Carbonate [Tums] 500 mg PO DIRECTED PRN 11/07/21 Magnesium (Unknown Dose) 1 tab PO DAILY 11/07/21 Multivitamins, Thera [Multivitamin (formulary)] 1 tab PO DAILY 11/07/21 Vitamin B-12 (Unknown Dose) 1 tab PO DAILY 11/07/21 Vitamin C (Unknown Dose) 1 tab PO DAILY 11/07/21 Vitamin D (Unknown Dose) 1 cap PO DAILY 11/07/21 Pseudoephedrine 12Hr [Sudafed 12 Hour] 120 mg PO Q12HR PRN 11/19/21 Vitamin C(Dose Unknown) 1 tab PO DAILY 11/19/21 Controlled Substance Measures - Controlled Substance Measures Is patient prescribed a controlled substance at discharge?: No
== END ==
LOC: PNWHC3 07:47
PROVIDERS: ATTEND Specialist
DX: G89.29 Other chronic pain (principal); M47.812 Spondylosis without myelopathy or radiculopathy, cervical region; M50.30 Other cervical disc degeneration, unspecified cervical region; F17.200 Nicotine dependence, unspecified, uncomplicated; Z91.018 Allergy to other foods; Z77.120 Contact with and (suspected) exposure to mold (toxic); Z88.5 Allergy status to narcotic agent; Z88.8 Allergy status to other drugs, medicaments and biological substances; Z91.048 Other nonmedicinal substance allergy status
CPT/HCPCS: 99211

== ENCOUNTER 2022-02-14 07:48 | Day surgery (SDC) | payer OTHER ==
[2022-02-14] MEDS ORDERED: LACTATED RINGERS 1,000 ML IV SCH (07:55)
[2022-02-14 08:36] VITALS: TEMP 97.9
[2022-02-14] MEDS ORDERED: MIDAZOLAM 2 MG/2 ML VIAL ONE (08:58)
[2022-02-14] MEDS ORDERED: fentaNYL (PF) 50 MCG/ML 2 ML AMP ONE (08:58)
[2022-02-14] MEDS ORDERED: IOPAMIDOL M200 10 ML VIAL ONE (08:58)
[2022-02-14] MEDS ORDERED: DEXAMETHASONE SOD PHOSPHATE 10 MG/ML 1 ML VIAL ONE (08:58)
--- NOTE | 2022-02-14 09:12 | P.PCN ---
Date of Procedure: 02/14/22 Procedure(s) Performed: PROCEDURE 1. Cervical epidural steroid injection under fluoroscopic guidance, C7-T1 (fluoroscopy images available in the radiology department ) 2. Cervical epidurogram. PREOPERATIVE DIAGNOSIS: 1- Cervical Degenerative Disc Diseases 2- Cervical radiculopathy., 3-cervical spondylosis POSTOPERATIVE DIAGNOSIS: : 1- Cervical Degenerative Disc Diseases , 2- Cervical radiculopathy. 3-cervical spondylosis ANESTHESIA: moderate sedation, with Versed 2 mg and Fentanyl 100 mcg. Sedation start time : 0 9:01 Sedation end time : 09:09 EBL 0 PROCEDURE INDICATION: The patient with neck pain and radiculitis unresponsive to conservative treatment consents for procedure. PROCEDURE DESCRIPTION / TECHNIQUE: The patient was seen and identified in the preoperative area. Risks, benefits, complications, including but not limited to infections ,bleeding , allergic reactions to the medications ,and not complete pain releife, and alternatives were discussed with the patient, the patient agreed to proceed with the procedure and signed the consent. Patient was taken to the OR and time out was completed. The patient was placed in the prone position on the procedure table. A pillow was placed under the patients chest to increase the cervical interlaminar space. The cervical area was prepped and draped in the usual sterile fashion. Vital signs were closely monitored during the procedure. Conscious sedation was used during the procedure to decrease patients anxiety. Using anterior-posterior fluoroscopy, the C7-T1 interlaminar space was identified and the skin over this site was marked and then infiltrated with 1% lidocaine subcutaneously. Subsequently, a 20-gauge 3-1/2-inch Tuohy epidural needle was inserted and advanced toward the epidural space by means of the ``hanging-drop technique and guided by AP and lateral fluoroscopy. The correct needle position in the epidural space was verified with the injection of 2 mL of the water soluble contrast dye Isovue-200 and observing an excellent epidur ogram with the epidural spread of the dye, after negative aspiration for blood and CSF and in the absence of paresthesias. then, mixture containing 20 mg Dexamethasone and 2 ml of preservative-free normal saline injected and a washout of epidurogram was seen. Needle was withdrawn intact, skin was cleansed, and bandages were applied. Complications= none. Disposition= patient was placed in supine position and transferred to the recovery room area in stable condition and there was no evidence of upper or lower extremity motor or sensory deficit after the procedure patient was discharged from recovery room after discharge criteria met and home discharge instructions was given by the staff and patient will follow with the pain clinic in 2-4 weeks
[2022-02-14] MEDS ORDERED: IV FLUID CONTINUATION 1,000 ML IV ONE (09:16)
[2022-02-14 09:18] VITALS: RESP 16
[2022-02-14 09:32] VITALS: BP 113/78; PULSE 68
--- NOTE | 2022-02-14 14:13 | FL ---
EXAMINATION TYPE: FL guided pain mgmt statistic DATE OF EXAM: 02/14/2022 FLUOROSCOPY Fluoroscopy time of 2 seconds was used during cervical epidural injection. 1 image/s document/s the procedure.
== END 2022-02-14 09:46 | disposition home or self-care (01) ==
LOC: ORPAIN 07:48
PROVIDERS: ATTEND Specialist
DX: M50.13 Cervical disc disorder with radiculopathy, cervicothoracic region (principal); M47.22 Other spondylosis with radiculopathy, cervical region; Z88.6 Allergy status to analgesic agent; Z88.8 Allergy status to other drugs, medicaments and biological substances
CPT/HCPCS: 62321; 99152; J2250; J1100; J3010; Q9966

== ENCOUNTER → 2022-02-28 | Outpatient (CLI) | payer OTHER ==
[2022-02-28 08:07] VITALS: BP 132/84; PULSE 80; RESP 16; TEMP 98.2
--- NOTE | 2022-02-28 08:48 | P.PAINPG ---
Subjective Progress Note Date: 02/28/22 Principal diagnosis: Cervical postlaminectomy syndrome, cervical radiculopathy, and cervical spondylosis without myelopathy Chief complaint : Neck pain, pain radiating to upper extremity sometimes. Mr. Hays is a 46 year old pleasant male patient came to [facility] pain management clinic for follow-up visit after cervical C7-T1 epidural procedure #3. After epidural procedure he got 80% pain relief is still working. He can able to sleep better, and do his activities much better. He is actively doing exercises as tolerated at home. He noticed some vertigo after epidural injection for 1 week duration. Currently no vertigo. Patient described pain as aching, sharp, throbbing type of pain. Patient rated pain 2-3 out of 10 in severity. Which may very her pain level from [ ] out of 10 in severity. Pain increases with activities. Pain decreases with intervention procedures and Motrin. Overall activities include after intervention procedures.. Pain medications helping to some extent. Denied any bowel or bladder problems. Patien t denies any adverse effects to medications. Not using any walking aids for walking. Complaining depression secondary to pain but denied any suicidal/homicidal tendency at this time. Sleep improved after intervention procedures. There are no signs of narcotic diversion/misuse/overuse and no new- onset weakness, bowel/bladder incontinence, saddle anesthesia, or no red flag symptoms. Objective - Vital Signs Vital signs: Vital Signs Temp 98.2 F 02/28/22 07:57 Pulse 80 02/28/22 07:57 Resp 16 02/28/22 07:57 BP 132/84 02/28/22 07:57 Pulse Ox 96 02/28/22 07:57 FiO2 Intake & Output 02/27/22 02/28/22 02/28/22 18:59 06:59 18:59 Weight 113.398 kg - Exam General: Well-developed, well-nourished, no acute distress HEENT: Normocephalic, and atraumatic Neck: Supple, no neck swelling Psychiatric: Appropriate mood, and affect [employer]: No focal neurological deficits Musculoskeletal: Upper extremity: Normal strength, and range of motion. Sensation grossly intact Lower extremity: Normal strength, and range of motion. Sensation grossly intact Cervical spine: Paravertebral tenderness: Positive Cervical spine facet caleb: Positive Cervical spine Spurling test: Negative - Constitutional Constitutional Comment(s): 12 point review of symptoms negative except as mentioned in the history of present illness. Assessment and Plan Assessment: Cervical postlaminectomy syndrome ( C4-C5 ACDF) Cervical spondylosis without myelopathy Cervical radiculopathy Myofascial pain syndrome, and chronic pain syndrome Plan: #1 Diagnoses, prognosis, and multiple treatment options including but not limited to physical therapy, interventional therapy, adjunct medication therapy, narcotic medication, and surgical options were discussed with the patient. And all questions were answered to the patient's satisfaction. #2 treatment plan agreement : Patient was thoroughly discussed regarding the treatment options, alternatives, and importance of exercises as tolerated. Patient clearly understood. #3 Patient was counseled on importance of regular exercise. Including judi chi, aerobic exercises as tolerated. Which helps for chronic pain, and overall well- being. Patient also counseled regarding importance of weight control rolling chronic pain, and overall other health issues. By altering diet habits, minimizing sugar intake, and processed foods helps in minimizing Inflammation. #4 investigations: MAPS- reviewed , urine drug test- done #5 diagnostic tests: None at this time #6 consultation : None at this time # 7 interventional procedures: C7-T1 epidural injection in future as needed . Procedure, complications, alternatives discussed with the patient. #8 medications #1 Motrin as needed #2 Tylenol as needed Medication side effects, complications, long-term consequences discussed with the patient. Patient recommended to contact the pain clinic if noticed any issues with given medications. #9 morphine milligrams equivalents dose ( MME) per day: 0 from the pain clinic. # 10 TENS unit's #11 disposition: scheduled to follow up with pain clinic in 12 weeks duration if needed any intervention procedures. Time with Patient: Less than 30 PQRS Measure Charge Sheet Mode of Arrival: Ambulatory - Pain Location Neck Non-Pharmacological Interventions: Heat, Ice Pharmacological Interventions: Epidural, PRN Medication, Topical Medication PQRS Narrative: Smoking Status Current some day smoker Blood Pressure 132/84 Pain Intensity [Neck] 2 Scale Used Numeric (1 - 10) Hx Alcohol Use (MH) Yes: occasional Home Medications: Ambulatory Orders Fluticasone Nasal [place] [Flonase Nasal [place]] 2 spray EA NOSTRIL DAILY PRN 06/05/20 Ibuprofen [Motrin Ib] 800 mg PO Q6H PRN 05/14/21 Calcium Carbonate [Tums] 500 mg PO DIRECTED PRN 11/07/21 Magnesium (Unknown Dose) 1 tab PO DAILY 11/07/21 Multivitamins, Thera [Multivitamin (formulary)] 1 tab PO DAILY 11/07/21 Vitamin B-12 (Unknown Dose) 1 tab PO DAILY 11/07/21 Vitamin C (Unknown Dose) 1 tab PO DAILY 11/07/21 Vitamin D (Unknown Dose) 1 cap PO DAILY 11/07/21 Pseudoephedrine 12Hr [Sudafed 12 Hour] 120 mg PO Q12HR PRN 11/19/21 Vitamin C(Dose Unknown) 1 tab PO DAILY 11/19/21 Albuterol Inhaler [Ventolin Hfa Inhaler] 1 - 2 puff INHALATION Q6H PRN 02/12/22 Controlled Substance Measures - Controlled Substance Measures Is patient prescribed a controlled substance at discharge?: No
== END ==
LOC: PNWHC3 07:41
DX: M96.1 Postlaminectomy syndrome, not elsewhere classified (principal); M47.22 Other spondylosis with radiculopathy, cervical region; M79.10 Myalgia, unspecified site; G89.4 Chronic pain syndrome; F17.200 Nicotine dependence, unspecified, uncomplicated; Z77.120 Contact with and (suspected) exposure to mold (toxic); Z88.5 Allergy status to narcotic agent; Z91.09 Other allergy status, other than to drugs and biological substances; Z91.048 Other nonmedicinal substance allergy status; Z88.8 Allergy status to other drugs, medicaments and biological substances
CPT/HCPCS: 99211

== ENCOUNTER 2022-06-13 07:02 | Day surgery (SDC) | payer OTHER ==
[2022-06-13 07:54] VITALS: TEMP 97.9
[2022-06-13] MEDS ORDERED: LACTATED RINGERS 1,000 ML IV ONE (08:00)
[2022-06-13] MEDS ORDERED: LACTATED RINGERS 1,000 ML IV SCH (08:15)
[2022-06-13] MEDS ORDERED: methylPREDNISolone ACETATE 40 MG/ML 1 ML VIAL ONE (08:22)
[2022-06-13] MEDS ORDERED: IOPAMIDOL M200 10 ML VIAL ONE (08:22)
[2022-06-13] MEDS ORDERED: fentaNYL (PF) 50 MCG/ML 2 ML AMP ONE (08:22)
[2022-06-13] MEDS ORDERED: MIDAZOLAM 2 MG/2 ML VIAL ONE (08:22)
--- NOTE | 2022-06-13 08:35 | P.PCN ---
Date of Procedure: 06/13/22 Description of Procedure: Pre- and Post-operative Diagnosis: Cervical radiculopathy Procedure: C7-T1 Inter-Laminar Cervical Epidural Steroid Injection under biplanar fluoroscopy Surgeon: Vincent Fisher Anesthesia: Local: 1% Lidocaine, IV sedation : Versed 2 mg, and fentanyl 100 g. Sedation supervision start time : 0 824 sedation Supervision end time: 0833 Complications: None. Estimated blood loss: None Specimens removed: None Fluoroscopic image: saved to electronic medical records. Indications for Procedure: The patient has been suffering from neck pain and pain radiating to the upper extremity . Inadequate pain control with pharmacologic regimen. An inter-laminar approach cervical epidural steroid injection was scheduled for the patient. Procedure and Findings: The patient was seen and examined in the holding area. The written informed consent was obtained after explaining the risks, benefits, alternatives of the procedure to the patient. The patient was brought to the procedure room and was placed in the prone position on the operating table. A pillow was placed under the upper chest. Standard anesthesia monitoring was done through out the procedure. Timeout was completed. The skin preparation was done with ChloraPrep 1 and draping was done in usual sterile fashion. Sterile technique was observed throughout the procedure. Under fluoroscopic guidance, the C7-T1 inter-laminar space was identified. 3 ml of 1% Lidocaine was injected with a 25 gauge needle to achieve adequate local anesthesia of the skin and subcutaneous tissue. A 20 gauge, 3.5 inch Tuohy type epidural needle was placed and gradually advanced up to the epidural space using loss of resistance technique and fluoroscopic guidance. Lateral, oblique fluoroscopic views confirm the needle position. No paresthesia was noted. A negative aspiration was confirmed and then 1.5 ml of Isovue-200 was injected. A good dye spread was seen in the epidural space and it was negative for any intrathecal, intraneural or intravascular spread. A total of 5 ml solution containing 80 mg Depo-Medrol, and 3 ml preservative-free Normal Saline was injected slowly with intermittent aspiration. The needle was removed intact, area was cleaned and bandage was applied. Disposition : The patient tolerated the procedure very well. The patient was transferred to the recovery room and remained stable until discharged home. The patient was given detailed discharge instructions for bleeding, infection, increased pain at the injection site, and was advised to seek immediate medical attention should significant side effects develop. The patient will be followed up with our Pain Clinic within 4 weeks for follow-up visit.
[2022-06-13] MEDS ORDERED: IV FLUID CONTINUATION 800 ML IV ONE (08:39)
[2022-06-13 08:55] VITALS: RESP 20
[2022-06-13 09:08] VITALS: BP 120/80; PULSE 69
--- NOTE | 2022-06-13 09:28 | FL ---
EXAMINATION TYPE: FL guided pain mgmt statistic DATE OF EXAM: 06/13/2022 FLUOROSCOPY Fluoroscopy time of 7 seconds was used during cervical epidural steroid injection. 3 image/s documen t/s the procedure. DAP [id number]
== END 2022-06-13 09:10 | disposition home or self-care (01) ==
LOC: ORPAIN 07:02
DX: M54.12 Radiculopathy, cervical region (principal); Z79.891 Long term (current) use of opiate analgesic; Z79.1 Long term (current) use of non-steroidal anti-inflammatories (NSAID); Z98.1 Arthrodesis status; Z98.890 Other specified postprocedural states; Z79.899 Other long term (current) drug therapy
CPT/HCPCS: 62321; J2250; J1030; J3010; Q9966

== ENCOUNTER → 2022-07-04 | Outpatient (CLI) | payer OTHER ==
[2022-07-04 09:24] VITALS: BP 132/91; PULSE 69; RESP 18; TEMP 98.1
--- NOTE | 2022-07-04 13:51 | P.PAINPG ---
PQRS Measure Charge Sheet Comment: A 59 yr old male with a history of severe and chronic neck pain secondary to cervical DDD and spondylosis with facet arthropathy without myelopathy presents today for evaluation s/p DAGO C7-T1. Pt states she experienced 80 % pain relief x 3 mo s/p procedure. Pain level is provoked at 6 /10 in intensity, constant, localized in the cervical spine, dull/ achy in character w shooting towards the BUEs. Pain is provoked by lifting. Pain is alleviated with medications, topicals, injections, heat, repositioning and rest. Interventional pain procedures completed include DAGO C7-T1 Patient is currently on Ibu Patient denies any side effects of the medication(s), denies excessive drowsiness or sleepiness, denies suicidal ideation and reports that the current pain medication is helping to control the pain and improve activities of daily living. Patient denies any motor or sensory deficits. Patient denies any fever or night sweats, denies any change in the bowel movements or urination. Physical Examination: -Constitutional: Cooperative. Not in acute distress . - Neurologic: Cranial nerve II to XII intact. No focal neurological deficits. - Psychatric: Alert & oriented x 3. Matching mood & appropriate affect. Judgment and insight intact. - Musculoskeletal: Cervical spine: Muscle bulk/ tone/ strength in the bilateral upper extremities normal Vertebral body tenderness to palpation over C7 Spurling test positive Distraction test positive Facet loading test positive TTP Thoracic spine Muscle bulk / tone/ strength in the bilateral paraspinal muscles normal Vertebral body tender to palpation over Facet loading test positive TTP Lumbar spine: Motor bulk/ tone/ strength lower extremities , thigh and legs : 5/5 Deep tendon reflexes : Normal Knee Jerk. Normal Ankle Jerk . Vertebral body tenderness to palpation over Lumbar Facet Loading Test positive Straight Leg Raise: positive at 30 degrees right side/ left side Gaenslen's Test positive Sacral spine : Severe tenderness over the Sacroiliac joint: right side / left side Range of motion: Flexion of the lumbar spine <60 degrees Range of motion: Extension of the lumbar spine <20 degrees Gaenslen's Test positive R / L Perry test: positive right side / left side Thigh Thrust Test positive R / L Sacral Thrust Test positive R/ L Assessment and plan: Chronic neck pain secondary to cervical DDD, spondylosis with facet arthropathy without myelopathy Recommendation of DAGO C7-T1 #4. Risks, benefits of procedure discussed and pt verbalized understanding. Admits to anticoagulant use or medical history of diabetes. Protocol for discontinuation/ continuation of medications rubi procedure discussed. All questions answered. I have spent less than 30 minutes on patient care today. Dr Motley was available by phone for the evaluation of this patient. The time was used to review the medical records including relevant urine studies and Prescription history (MAPs), review of the available imaging, evaluation and examination of the patient, coordination of care with the medical staff and if applicable referring physicians, as well as creation of the medical record PQRS Narrative: Smoking Status Current some day smoker Hx Alcohol Use (MH) Yes: occasional Home Medications: Ambulatory Orders Fluticasone Nasal [place] [Flonase Nasal [place]] 2 spray EA NOSTRIL DAILY PRN 06/05/20 Ibuprofen [Motrin Ib] 800 mg PO Q6H PRN 05/14/21 Calcium Carbonate [Tums] 500 mg PO DIRECTED PRN 11/07/21 Magnesium (Unknown Dose) 1 tab PO DAILY 11/07/21 Multivitamins, Thera [Multivitamin (formulary)] 1 tab PO DAILY 11/07/21 Vitamin B-12 (Unknown Dose) 1 tab PO DAILY 11/07/21 Vitamin C (Unknown Dose) 1 tab PO DAILY 11/07/21 Vitamin D (Unknown Dose) 1 cap PO DAILY 11/07/21 Pseudoephedrine 12Hr [Sudafed 12 Hour] 120 mg PO Q12HR PRN 11/19/21 Vitamin C(Dose Unknown) 1 tab PO DAILY 11/19/21 Albuterol Inhaler [Ventolin Hfa Inhaler] 1 - 2 puff INHALATION Q6H PRN 02/12/22 Controlled Substance Measures - Controlled Substance Measures Is patient prescribed a controlled substance at discharge?: No
== END ==
LOC: PNWHC3 07:33
PROVIDERS: ATTEND Specialist
DX: M50.30 Other cervical disc degeneration, unspecified cervical region (principal); M47.812 Spondylosis without myelopathy or radiculopathy, cervical region; G89.29 Other chronic pain; F17.200 Nicotine dependence, unspecified, uncomplicated; Z91.09 Other allergy status, other than to drugs and biological substances; Z88.2 Allergy status to sulfonamides; Z91.048 Other nonmedicinal substance allergy status
CPT/HCPCS: 99211

== ENCOUNTER 2022-07-30 05:58 | Day surgery (SDC) | payer OTHER ==
[2022-07-25 16:02] VITALS: BMI 33.0
[~2022-07-30 05:58] MED LIST changes: +LIDOCAINE 1% (10MG/ML) FOR IV START INTRADERMA PRN
[2022-07-30 06:30] VITALS: TEMP 97.2
[2022-07-30] MEDS ORDERED: DEXAMETHASONE SOD PHOSPHATE 10 MG/ML 1 ML VIAL ONE (06:55)
[2022-07-30] MEDS ORDERED: fentaNYL (PF) 50 MCG/ML 2 ML AMP ONE (06:55)
[2022-07-30] MEDS ORDERED: IOPAMIDOL M200 10 ML VIAL ONE (06:55)
[2022-07-30] MEDS ORDERED: MIDAZOLAM 2 MG/2 ML VIAL ONE (06:55)
--- NOTE | 2022-07-30 07:08 | P.PCN ---
Date of Procedure: 07/30/22 Procedure(s) Performed: PROCEDURE 1. Cervical epidural steroid injection under fluoroscopic guidance, C7-T1 (fluoroscopy images available in the radiology department ) 2. Cervical epidurogram. PREOPERATIVE DIAGNOSIS: 1- Cervical Degenerative Disc Diseases 2- Cervical radiculopathy., 3-cervical spondylosis POSTOPERATIVE DIAGNOSIS: : 1- Cervical Degenerative Disc Diseases , 2- Cervical radiculopathy. 3-cervical spondylosis ANESTHESIA: moderate sedation, with Versed 2 mg and Fentanyl 100 mcg. Sedation start time : 656 Sedation end time : 706 EBL 0 PROCEDURE INDICATION: The patient with neck pain and radiculitis unresponsive to conservative treatment consents for procedure. PROCEDURE DESCRIPTION / TECHNIQUE: The patient was seen and identified in the preoperative area. Risks, benefits, complications, including but not limited to infections ,bleeding , allergic reactions to the medications ,and not complete pain releife, and alternatives were discussed with the patient, the patient agreed to proceed with the procedure and signed the consent. Patient was taken to the OR and time out was completed. The patient was placed in the prone position on the procedure table. A pillow was placed under the patients chest to increase the cervical interlaminar space. The cervical area was prepped and draped in the usual sterile fashion. Vital signs were closely monitored during the procedure. Conscious sedation was used during the procedure to decrease patients anxiety. Using anterior-posterior fluoroscopy, the C7-T1 interlaminar space was identified and the skin over this site was marked and then infiltrated with 1% lidocaine subcutaneously. Subsequently, a 20-gauge 3-1/2-inch Tuohy epidural needle was inserted and advanced toward the epidural space by means of the ``hanging-drop technique and guided by AP and lateral fluoroscopy. The correct needle position in the epidural space was verified with the injection of 2 mL of the water soluble contrast dye Isovue-200 and observing an excellent epidurogram with the epidural spread of the dye, after negative aspiration for blood and CSF and in the absence of paresthesias. then, mixture containing 20 mg Dexamethasone and 2 ml of preservative-free normal saline injected and a washout of epidurogram was seen. Needle was withdrawn intact, skin was cleansed, and bandages were applied. Complications= none. Disposition= patient was placed in supine position and transferred to the recovery room area in stable condition and there was no evidence of upper or lower extremity motor or sensory deficit after the procedure patient was discharged from recovery room after discharge criteria met and home discharge instructions was given by the staff and patient will follow with the pain clinic in 2-4 weeks
[2022-07-30] MEDS ORDERED: LACTATED RINGERS 1,000 ML IV ONE (07:12)
[2022-07-30 07:29] VITALS: BP 131/78; PULSE 62; RESP 17
--- NOTE | 2022-07-30 09:36 | FL ---
EXAMINATION TYPE: FL guided pain mgmt statistic DATE OF EXAM: 07/30/2022 FLUOROSCOPY Fluoroscopy time of 1 seconds was used during cervical epidural steroid injection. 1 image/s documen t/s the procedure. DOSE AREA PRODUCT (DAP) UGY*M,MGY*CM: 0.02843
== END 2022-07-30 07:45 | disposition home or self-care (01) ==
LOC: ORPAIN 05:58
PROVIDERS: ATTEND Specialist
DX: M50.13 Cervical disc disorder with radiculopathy, cervicothoracic region (principal); M47.22 Other spondylosis with radiculopathy, cervical region; Z88.8 Allergy status to other drugs, medicaments and biological substances
CPT/HCPCS: 62321; 99152; J2250; J1100; J3010; Q9966

== ENCOUNTER → 2022-08-22 | Outpatient (CLI) | payer OTHER ==
[2022-08-22 08:22] VITALS: BP 136/92; PULSE 67; RESP 18; TEMP 97.9
== END ==
LOC: PNWHC3 07:23
PROVIDERS: ATTEND Specialist
DX: M54.2 Cervicalgia (principal); G89.4 Chronic pain syndrome; Z88.5 Allergy status to narcotic agent; Z91.09 Other allergy status, other than to drugs and biological substances; Z91.048 Other nonmedicinal substance allergy status; F17.200 Nicotine dependence, unspecified, uncomplicated
CPT/HCPCS: 99211

== ENCOUNTER 2023-03-05 10:49 | Emergency (ER) | payer OTHER ==
--- NOTE | 2023-03-05 10:56 | ED ---
General Adult HPI - General Source: patient, RN notes reviewed Mode of arrival: ambulatory Limitations: no limitations <Kris Ding - Last Filed: 03/05/23 10:54> - General Source: patient, RN notes reviewed, old records reviewed <Surinder Rivera - Last Filed: 03/05/23 14:52> - General Stated complaint: congestion Time Seen by Provider: 03/05/23 10:54 - History of Present Illness Initial comments: 47-year-old male presents emergency Department chief complaint cough, shortness breath. Patient states symptoms started this morning he may have had a fever. He does have some bodyaches mild congestion. (Kris Ding) Patient is a 47-year-old male presents with Department complaining of ear fullness, sinus pressure, intermittent lightheadedness, cough. Has been ongoing for the last 2 weeks. Denies any shortness breath or chest pain. Denies any fevers or chills. Denies nausea or vomiting. Presents for further evaluation of this time. Has a history of recurrent sinus infections. (Surinder Rivera) - Related Data Home Medications Medication Instructions Recorded Confirmed Ibuprofen [Motrin Ib] 800 mg PO Q6H PRN 05/14/21 03/05/23 Albuterol Inhaler [Ventolin Hfa 1 - 2 puff INHALATION RT-Q6H PRN 02/12/22 03/05/23 Inhaler] Cyanocobalamin (Vitamin B-12) 1,000 mcg PO DAILY 03/05/23 03/05/23 [Vitamin B-12] Previous Rx's Medication Instructions Recorded Amoxic-Pot Clav 875-125Mg 1 tab PO Q12HR 10 Days #20 tab 03/05/23 [Augmentin 875-125] Allergies Allergy/AdvReac Type Severity Reaction Status Date / Time cat dander Allergy Unknown Dyspnea Verified 03/05/23 13:31 mold Allergy Unknown Dyspnea Verified 03/05/23 13:31 morphine AdvReac Unknown Nausea Verified 03/05/23 13:31 topiramate [From Topamax] AdvReac RAPID Verified 03/05/23 13:31 HEART BEAT dust mites Allergy Unknown allergy Uncoded 03/05/23 11:37 symptoms Review of Systems ROS Other: All systems not noted in ROS Statement are negative. <Kris Ding - Last Filed: 03/05/23 10:54> ROS Other: All systems not noted in ROS Statement are negative. <Surinder Rivera - Last Filed: 03/05/23 14:52> ROS Statement: Those systems with pertinent positive or pertinent negative responses have been documented in the HPI. Review of Systems: CONST: Denies fever EYES: Denies blurry vision ENT: Endorses nasal congestion C/V: Denies Chest pain RESP: Denies shortness of breath GI: Denies abdominal pain : Denies dysuria SKIN: Denies rash. MSK: Denies joint pain. NEURO: Denies headache (Surinder Rivera) Past Medical History Past Medical History: GERD/Reflux, Osteoarthritis (OA), Sleep Apnea/CPAP/BIPAP Additional Past Medical History / Comment(s): new c-pap machine History of Any Multi-Drug Resistant Organisms: None Reported Past Surgical History: Ear Surgery, Hernia Repair, Orthopedic Surgery Additional Past Surgical History / Comment(s): cervical fusion, left knee arthroscopy x 2, tendon repair rt hand., sinus surgery, PAIN CLINIC PROCEDURES Past Anesthesia/Blood Transfusion Reactions: No Reported Reaction Additional Past Anesthesia/Blood Transfusion Reaction / Comment(s): states "I talk crazy after anesthesia" Past Psychological History: Anxiety, Depression Smoking Status: Current every day smoker Past Alcohol Use History: Occasional Additional Past Alcohol Use History / Comment(s): smokes 1ppd, started smoking age 17. Past Drug Use History: Marijuana Additional Drug Use History / Comment(s): daily marijuana instructed to refrain x 24 hours before procedure - Past Family History Mother Family Medical History: Cancer <Kris Ding - Last Filed: 03/05/23 10:54> General Exam <Kris Ding - Last Filed: 03/05/23 10:54> <Surinder Rivera - Last Filed: 03/05/23 14:52> - General Exam Comments Initial Comments: Visual Physical Exam Vital signs reviewed General: Well-appearing, nontoxic, no acute distress. Head: Normocephalic, atraumatic Eyes: PERRLA, EOMI ENT: Airway patent Chest: Nonlabored breathing Skin: No visual rash, normal skin tone Neuro: Alert and oriented 3 Musculoskeletal: No gross abnormalities (Kris Ding) General: Appears in no acute distress. HEAD: Normal with no signs of head trauma. EYES: PERRLA, EOMI, conjunctiva normal, no discharge. ENT: Hearing grossly intact, normal oropharynx. No sinus tenderness palpation. Patient does have fluid behind bilateral tympanic membranes. No erythema. RESPIRATORY: Clear breath sounds bilaterally. No wheezes, rales, or rhonchi. C/V: Regular rate and rhythm. S1 and S2 auscultated, no edema, peripheral pulses 2+ and intact throughout ABD: Abd is soft, nontender, nondistended EXT: Normal range of motion, no obvious deformity SKIN: No rashes or lesions observed on exposed skin. NEURO: Alert and oriented x 4. Cranial nerves II-XII intact. No focal sensory or strength deficits. NIH is 0. (Surinder Rivera) Course Vital Signs 03/05/23 03/05/23 11:34 13:57 Temperature 98 F Pulse Rate 76 72 Respiratory 18 18 Rate Blood Pressure 128/89 140/94 O2 Sat by Pulse 98 96 Oximetry Medical Decision Making <Kris Ding - Last Filed: 03/05/23 10:54> - EKG Data -: EKG Interpreted by Me <Surinder Rivera - Last Filed: 03/05/23 14:52> - Medical Decision Making I completed the quick note portion of this chart signed Kris Ding PA-C (Kris Ding) Was pt. sent in by a medical professional or institution (JAYLA Heard, CLINICAL DIETETIC TECHNICIAN, urgent care, hospital, or retirement...) When possible be specific @ -No Did you speak to anyone other than the patient for history (EMS, parent, family, police, friend...)? What history was obtained from this source @ -No Did you review nursing and triage notes (agree or disagree)? Why? @ -I reviewed and agree with nursing and triage notes, except patient states he is not short of breath but rather has intermittent lightheadedness and sinus pressure. Ear fullness sensation as well. Were old charts reviewed (outside hosp., previous admission, EMS record, old EKG, old radiological studies, urgent care reports/EKG's, retirement records)? Report findings @ -Old charts reviewed. Differential Diagnosis (chest pain, altered mental status, abdominal pain women, abdominal pain men, vaginal bleeding, weakness, fever, dyspnea, syncope, headache, dizziness, GI bleed, back pain, seizure, CVA, palpatations, mental health, musculoskeletal)? @ -Sinus infection, URI, arrhythmia, dehydration. This list is not INCLUSIVE. EKG interpreted by me (3pts min.). @ -As above X-rays interpreted by me (1pt min.). @ -Chest x-ray reveals no obvious acute cardiopulmonary process. CT interpreted by me (1pt min.). @ -None done U/S interpreted by me (1pt. min.). @ -None done What testing was considered but not performed or refused? (CT, X-rays, U/S, labs)? Why? @ -I offered basic labs to check for dehydration over patient declines at this time. What meds were considered but not given or refused? Why? @ -None Did you discuss the management of the patient with other professionals (professionals i.e. , PA, CLINICAL DIETETIC TECHNICIAN, lab, RT, psych nurse, social problems specialist, polysomnograph tech, teacher, radio division officer, director case management)? Give summary @ -No Was smoking cessation discussed for >3mins.? @ -No Was critical care preformed (if so, how long)? @ -No Were there social determinants of health that impacted care today? How? (Homelessness, low income, unemployed, alcoholism, drug addiction, transportation, low edu. Level, literacy, decrease access to med. care, long term, rehab)? @ -No Was there de-escalation of care discussed even if they declined (Discuss DNR or withdrawal of care, Hospice)? DNR status @ -No What co-morbidities impacted this encounter? (DM, HTN, Smoking, COPD, CAD, Cancer, CVA, ARF, Chemo, Hep., AIDS, mental health diagnosis, sleep apnea, morbid obesity)? @ -None Was patient admitted / discharged? Hospital course, mention meds given and route, prescriptions, significant lab abnormalities, going to OR and other pertinent info. @ -Based on patient's presentation and physical exam, presents as a quick note. Presents for nasal congestion, sinus congestion, ear fullness sensation, lightheadedness. Vital signs within acceptable limits. Neuro exam unremarkable. I discussed the results of his workup with the patient as his vital signs and chest x-ray unremarkable. I did offer laboratory studies at this time however patient agrees is likely a sinus infection and he will be given a dose of steroids as well as antibiotics. We will obtain a screening EKG which showed no signs of acute ischemia. He'll be discharged home at this time with strict return precautions.We did discuss obtain basic labs however patient declines at this time. Patient's symptoms have been ongoing for the last 2 weeks. I will provide the patient with a prescription for Augmentin. I instructed the patient to follow up with their PCP in the next 1-3 days. I explained that the patient should return to the emergency department if they experience any worsening symptoms. Strict return precautions were discussed with the patient. The patient expressed understanding of these instructions. I answered all questions that the patient had. The patient was discharged home in good condition with their prescriptions and follow up information. Undiagnosed new problem with uncertain prognosis? @ -No Drug Therapy requiring intensive monitoring for toxicity (Heparin, Nitro, Insulin, Cardizem)? @ -No Were any procedures done? @ -No Diagnosis/symptom? @ -sinus infection Acute, or Chronic, or Acute on Chronic? @ -Acute Uncomplicated (without systemic symptoms) or Complicated (systemic symptoms)? @ -Complicated Side effects of treatment? @ -No Exacerbation, Progression, or Severe Exacerbation? @ -No Poses a threat to life or bodily function? How? (Chest pain, [place], [place], pneumonia, PE, COPD, DKA, ARF, appy, cholecystitis, CVA, Diverticulitis, Homicidal, Suicidal, threat to staff... and all critical care pts) @ -No (Surinder Rivera) - Lab Data Lab Results 03/05/23 Range/Units 11:37 Influenza Type A (PCR) Not Detected (Not Detectd) Influenza Type B (PCR) Not Detected (Not Detectd) RSV (PCR) Not Detected (Not Detectd) SARS-CoV-2 (PCR) Not Detected (Not Detectd) - EKG Data EKG Comments: 12-lead Electrocardiogram Interpretation Note EKG was reviewed and interpreted by myself. 12-lead ECG performed at 1408 is interpreted by me as revealing normal sinus rhythm at a rate of 63 beats per minute. [place] is normal. NH interval is 176 ms, QRS duration is 98 ms, QTc is 417 ms.. There were no ST or T wave abnormalities to suggest myocardial ischemia or injury. R wave progression across the precordium was satisfactory. By my interpretation this EKG is non-diagnostic for acute ischemia. (Surinder Rivera) Disposition <Kris Ding - Last Filed: 03/05/23 10:54> Is patient prescribed a controlled substance at d/c from ED?: No Time of Disposition: 13:55 <Surinder Rivera - Last Filed: 03/05/23 14:52> Clinical Impression: Acute sinusitis Disposition: HOME SELF-CARE Condition: Good Instructions (If sedation given, give patient instructions): Sinusitis (ED) Prescriptions: Amoxic-Pot Clav 875-125Mg [Augmentin 875-125] 1 tab PO Q12HR 10 Days #20 tab Referrals: [facility],Clinic [Primary Care Provider] - 1-2 days Forms: Work/School Release
--- NOTE | 2023-03-05 11:43 | XR ---
EXAMINATION TYPE: XR chest 2V DATE OF EXAM: 03/05/2023 11:20 AM CLINICAL INDICATION:Male, 47 years old with history of sob; COMPARISON: Chest radiographs from 11/24/2021. TECHNIQUE: XR chest 2V Frontal and lateral views of the chest. FINDINGS: Lungs/Pleura: There is no evidence of pleural effusion, focal consolidation, or pneumothorax. Pulmonary vascularity: Unremarkable. Heart/mediastinum: Cardiomediastinal silhouette is unremarkable. Musculoskeletal: No acute osseous pathology. IMPRESSION: No acute cardiopulmonary disease/process.
[2023-03-05 11:52] VITALS: RESP 18; TEMP 98
[2023-03-05] MEDS ORDERED: dexAMETHasone 2 MG TAB PO STA (13:47)
[2023-03-05] MEDS ORDERED: AMOXIC-POT CLAV 875-125MG 1 EACH TAB PO STA (13:47)
[2023-03-05 14:19] VITALS: BP 140/94; PULSE 72
== END 2023-03-05 14:37 | disposition home or self-care (01) ==
LOC: EC 10:49
DX: J01.90 Acute sinusitis, unspecified (principal); M19.90 Unspecified osteoarthritis, unspecified site; F41.9 Anxiety disorder, unspecified; F32.A Depression, unspecified; F17.210 Nicotine dependence, cigarettes, uncomplicated; F12.90 Cannabis use, unspecified, uncomplicated; Z88.5 Allergy status to narcotic agent; Z88.8 Allergy status to other drugs, medicaments and biological substances; Z79.899 Other long term (current) drug therapy; Z20.822 Contact with and (suspected) exposure to COVID-19
CPT/HCPCS: 93005; 87636; 71046; 99284; J8540

== ENCOUNTER 2023-06-26 20:32 | Emergency (ER) | payer OTHER ==
--- NOTE | 2023-06-26 21:17 | XR ---
EXAMINATION TYPE: XR chest 2V DATE OF EXAM: 06/26/2023 COMPARISON: 03/05/2023 HISTORY: Shortness of breath TECHNIQUE: Frontal and lateral views of the chest are obtained. FINDINGS: There is no focal air space opacity, pleural effusion, or pneumothorax seen. The cardiac silhouette size is within normal limits. The osseous structures are intact. IMPRESSION: No acute cardiopulmonary process.
[2023-06-26 21:19] LABS: Basophils # (A) 0.1 k/uL (0-0.2); Basophils % (A) 1 %; Eosinophils # (A) 0.3 k/uL (0-0.7); Eosinophils % (A) 3 %; HCT 45.5 % (39.0-53.0); HGB 15.8 gm/dL (13.0-17.5); Lymphocytes % (A) 33 %; MCH 32.3 pg (25.0-35.0); MCHC 34.8 g/dL (31.0-37.0); MCV 92.8 fL (80.0-100.0); Mean Platelet Volume 8.1; Monocytes # (A) 0.6 k/uL (0-1.0); Monocytes % (A) 6 %; Neutrophils % (A) 55 %; Platelet Count 344 k/uL (150-450); RDW 12.3 % (11.5-15.5); WBC 9.1 k/uL (3.8-10.6)
[2023-06-26 21:28] LABS: INR 0.9 (<1.2); Partial Thromboplastin Time 25.2 sec (22.0-30.0); Prothrombin Time 10.2 sec (10.0-12.5)
[2023-06-26 21:40] LABS: ALT 33 U/L (4-49); AST 26 U/L (17-59); African American GFR (CKD) >90 (>60 ml/min/1.73 sqM); Albumin 4.6 g/dL (3.5-5.0); Alkaline Phosphatase 63 U/L (38-126); Anion Gap 10 mmol/L; Blood Urea Nitrogen 12 mg/dL (9-20); Calcium 10.1 mg/dL (8.4-10.2); Carbon Dioxide 21 mmol/L (22-30); Chloride 106 mmol/L (98-107); Glucose 114 mg/dL (74-99); Magnesium 1.9 mg/dL (1.6-2.3); Non-African American GFR(CKD) >90 (>60 ml/min/1.73 sqM); Potassium 4.1 mmol/L (3.5-5.1); Sodium 137 mmol/L (137-145); Total Bilirubin 0.9 mg/dL (0.2-1.3); Total Protein 7.1 g/dL (6.3-8.2)
--- NOTE | 2023-06-26 22:48 | ED ---
Arrhythmia/Palpitations HPI - General Chief Complaint: Arrhythmia/Palpitations Stated Complaint: Palpitations Source: patient, RN notes reviewed, old records reviewed Mode of arrival: ambulatory Limitations: no limitations - History of Present Illness Initial Comments: This is a 47-year-old male with concerns for palpitations. Patient feels like he is having his heart racing in his chest has been feeling weak for a few days now the symptoms have been persistent although improved here in the ER. Patient has no travel history no sick contacts no other complaints. Patient has persistent weakness here in the emergency department still with palpitations but no chest pain or shortness of breath MD Complaint: rapid heart beat, "heart racing", palpitations -: days(s) Associated Symptoms: denies other symptoms Treatments Prior to Arrival: other (0) - Related Data Home Medications Medication Instructions Recorded Confirmed Ibuprofen [Motrin Ib] 800 mg PO Q6H PRN 05/14/21 03/05/23 Albuterol Inhaler [Ventolin Hfa 1 - 2 puff INHALATION RT-Q6H PRN 02/12/22 03/05/23 Inhaler] Cyanocobalamin (Vitamin B-12) 1,000 mcg PO DAILY 03/05/23 03/05/23 [Vitamin B-12] Previous Rx's Medication Instructions Recorded Amoxic-Pot Clav 875-125Mg 1 tab PO Q12HR 10 Days #20 tab 03/05/23 [Augmentin 875-125] Allergies Allergy/AdvReac Type Severity Reaction Status Date / Time cat dander Allergy Unknown Dyspnea Verified 06/26/23 20:46 mold Allergy Unknown Dyspnea Verified 06/26/23 20:46 morphine AdvReac Unknown Nausea Verified 06/26/23 20:46 topiramate [From Topamax] AdvReac RAPID Verified 06/26/23 20:46 HEART BEAT dust mites Allergy Unknown allergy Uncoded 06/26/23 20:46 symptoms Review of Systems ROS Statement: Those systems with pertinent positive or pertinent negative responses have been documented in the HPI. ROS Other: All systems not noted in ROS Statement are negative. Past Medical History Past Medical History: GERD/Reflux, Osteoarthritis (OA), Sleep Apnea/CPAP/BIPAP Additional Past Medical History / Comment(s): new c-pap machine History of Any Multi-Drug Resistant Organisms: None Reported Past Surgical History: Ear Surgery, Hernia Repair, Orthopedic Surgery Additional Past Surgical History / Comment(s): cervical fusion, left knee arthroscopy x 2, tendon repair rt hand., sinus surgery, PAIN CLINIC PROCEDURES Past Anesthesia/Blood Transfusion Reactions: No Reported Reaction Additional Past Anesthesia/Blood Transfusion Reaction / Comment(s): states "I talk crazy after anesthesia" Past Psychological History: Anxiety, Depression Smoking Status: Current every day smoker Past Alcohol Use History: Occasional Past Drug Use History: Marijuana - Past Family History Mother Family Medical History: Cancer General Exam Limitations: no limitations General appearance: alert, in no apparent distress Head exam: Present: atraumatic, normocephalic, normal inspection Eye exam: Present: normal appearance, PERRL, EOMI. Absent: scleral icterus, conjunctival injection, periorbital swelling ENT exam: Present: normal exam, mucous membranes moist Neck exam: Present: normal inspection. Absent: tenderness, meningismus, lymphadenopathy Respiratory exam: Present: normal lung sounds bilaterally. Absent: respiratory distress, wheezes, rales, rhonchi, stridor Cardiovascular Exam: Present: regular rate, normal rhythm, normal heart sounds. Absent: systolic murmur, diastolic murmur, rubs, gallop, clicks GI/Abdominal exam: Present: soft, normal bowel sounds. Absent: distended, t enderness, guarding, rebound, rigid Extremities exam: Present: normal inspection, full ROM, normal capillary refill. Absent: tenderness, pedal edema, joint swelling, calf tenderness Back exam: Present: normal inspection Neurological exam: Present: alert, oriented X3, CN II-XII intact Psychiatric exam: Present: normal affect, normal mood Skin exam: Present: warm, dry, intact, normal color. Absent: rash Course Vital Signs 06/26/23 06/26/23 06/26/23 20:43 22:20 22:52 Temperature 97.9 F 98.0 F Pulse Rate 71 66 64 Respiratory 16 16 18 Rate Blood Pressure 127/87 136/95 134/78 O2 Sat by Pulse 97 98 99 Oximetry - Reevaluation(s) Reevaluation #1: 06/27/23 03:06 Medical records reviewed Reevaluation #2: 06/27/23 03:06 Patient symptoms unchanged Reevaluation #3: 06/27/23 03:06 Patient informed of results questions answered feels good for discharge home Reevaluation #4: Was pt. sent in by a medical professional or institution (JAYLA Heard, SAP PORTAL DEVELOPER, urgent care, hospital, or snf...) When possible be specific @ -no Did you speak to anyone other than the patient for history (EMS, parent, family, police, friend...)? What history was obtained from this source @ -no Did you review nursing and triage notes (agree or disagree)? Why? @ -agree Are old charts reviewed (outside hosp., previous admission, EMS record, old EKG, old radiological studies, urgent care reports/EKG's, snf records)? Report findings @ -yes Differential Diagnosis (chest pain, altered mental status, abdominal pain women, abdominal pain men, vaginal bleeding, weakness, fever, dyspnea, syncope, headache, dizziness, GI bleed, back pain, seizure, CVA, palpatations, mental health, musculoskeletal)? @ -prior EKG interpreted by me (3pts min.). @ -yes X-rays interpreted by me (1pt min.). @ -yes negative for acute disease CT interpreted by me (1pt min.). @ -no U/S interpreted by me (1pt. min.). @ -no What testing was considered but not performed or refused? (CT, X-rays, U/S, labs)? Why? @ -none What meds were considered but not given or refused? Why? @ -none Did you discuss the management of the patient with other professionals (professionals i.e. JAYLA Heard, SAP PORTAL DEVELOPER, lab, RT, psych nurse, social services assistant, log roper, teacher, chief digital media officer, family preservation caseworker)? Give summary @ -no Was smoking cessation discussed for >3mins.? @ -no Was critical care preformed (if so, how long)? @ -no Were there social determinants of health that impacted care today? How? (Homelessness, low income, unemployed, alcoholism, drug addiction, transportation, low edu. Level, literacy, decrease access to med. care, correction, rehab)? @ -none Was there de-escalation of care discussed even if they declined (Discuss DNR or withdrawal of care, Hospice)? DNR status @ -no What co-morbidities impacted this encounter? (DM, HTN, Smoking, COPD, CAD, Cancer, CVA, ARF, Chemo, Hep., AIDS, mental health diagnosis, sleep apnea, morbid obesity)? @ -none Was patient admitted / discharged? Hospital course, mention meds given and route, prescriptions, significant lab abnormalities, going to OR and other pertinent info. @ - 47 male with palpitations and dizziness. No acute findings here in the ER patient symptoms are improved he is relieved that he is of normal EKG and lab testing and patient can be discharged home Discharge Undiagnosed new problem with uncertain prognosis? @ -no Drug Therapy requiring intensive monitoring for toxicity (Heparin, Nitro, Insulin, Cardizem)? @ -no Were any procedures done? @ -no Diagnosis/symptom? @ -Palpitations arrhythmia Acute, or Chronic, or Acute on Chronic? @ -Acute Uncomplicated (without systemic symptoms) or Complicated (systemic symptoms)? @ -Complicated Side effects of treatment? @ -no Exacerbation, Progression, or Severe Exacerbation? @ -exacerbation Poses a threat to life or bodily function? How? (Chest pain, [place], [place], pneumonia, PE, COPD, DKA, ARF, appy, cholecystitis, CVA, Diverticulitis, Homicidal, Suicidal, threat to staff... and all critical care pts) @ -Yes with arrhythmia Reevaluation #5: Differential Palpitations Ventricular arrhythmias, atrial arrhythmias, myocardial infarction, anemia, thyrotoxicosis, electrolyte imbalance, hypokalemia, pulmonary embolism, pulmonary disease, drugs, alcohol, anxiety, stress.... This is not meant to be an all-inclusive list. EKG Findings - EKG Comments: EKG Findings:: EKG is sinus 76 [place] 176 QTc 63 QRS 414 - EKG Results: EKG: interpreted by ERMD Medical Decision Making - Medical Decision Making 47 male with palpitations and dizziness. No acute findings here in the ER patient symptoms are improved he is relieved that he is of normal EKG and lab testing and patient can be discharged home - Lab Data Result diagrams: 06/26/23 20:58 06/26/23 20:58 Lab Results 06/26/23 06/26/23 06/26/23 Range/Units 20:58 20:58 20:58 WBC 9.1 (3.8-10.6) k/uL RBC 4.90 (4.30-5.90) m/uL Hgb 15.8 (13.0-17.5) gm/dL Hct 45.5 (39.0-53.0) % MCV 92.8 (80.0-100.0) fL MCH 32.3 (25.0-35.0) pg MCHC 34.8 (31.0-37.0) g/dL RDW 12.3 (11.5-15.5) % Plt Count 344 (150-450) k/uL MPV 8.1 Neutrophils % 55 % Lymphocytes % 33 % Monocytes % 6 % Eosinophils % 3 % Basophils % 1 % Neutrophils # 5.0 (1.3-7.7) k/uL Lymphocytes # 3.0 (1.0-4.8) k/uL Monocytes # 0.6 (0-1.0) k/uL Eosinophils # 0.3 (0-0.7) k/uL Basophils # 0.1 (0-0.2) k/uL PT 10.2 (10.0-12.5) sec INR 0.9 (<1.2) APTT 25.2 (22.0-30.0) sec Sodium 137 (137-145) mmol/L Potassium 4.1 (3.5-5.1) mmol/L Chloride 106 (98-107) mmol/L Carbon Dioxide 21 L (22-30) mmol/L Anion Gap 10 mmol/L BUN 12 (9-20) mg/dL Creatinine 0.91 (0.66-1.25) mg/dL Est GFR (CKD-EPI)AfAm >90 (>60 ml/min/1.73 sqM) Est GFR (CKD-EPI)NonAf >90 (>60 ml/min/1.73 sqM) Glucose 114 H (74-99) mg/dL Calcium 10.1 (8.4-10.2) mg/dL Magnesium 1.9 (1.6-2.3) mg/dL Total Bilirubin 0.9 (0.2-1.3) mg/dL AST 26 (17-59) U/L ALT 33 (4-49) U/L Alkaline Phosphatase 63 (38-126) U/L Troponin I (0.000-0.034) ng/mL Total Protein 7.1 (6.3-8.2) g/dL Albumin 4.6 (3.5-5.0) g/dL TSH 4.630 (0.465-4.680) mIU/L 06/26/23 Range/Units 20:58 WBC (3.8-10.6) k/uL RBC (4.30-5.90) m/uL Hgb (13.0-17.5) gm/dL Hct (39.0-53.0) % MCV (80.0-100.0) fL MCH (25.0-35.0) pg MCHC (31.0-37.0) g/dL RDW (11.5-15.5) % Plt Count (150-450) k/uL MPV Neutrophils % % Lymphocytes % % Monocytes % % Eosinophils % % Basophils % % Neutrophils # (1.3-7.7) k/uL Lymphocytes # (1.0-4.8) k/uL Monocytes # (0-1.0) k/uL Eosinophils # (0-0.7) k/uL Basophils # (0-0.2) k/uL PT (10.0-12.5) sec INR (<1.2) APTT (22.0-30.0) sec Sodium (137-145) mmol/L Potassium (3.5-5.1) mmol/L Chloride (98-107) mmol/L Carbon Dioxide (22-30) mmol/L Anion Gap mmol/L BUN (9-20) mg/dL Creatinine (0.66-1.25) mg/dL Est GFR (CKD-EPI)AfAm (>60 ml/min/1.73 sqM) Est GFR (CKD-EPI)NonAf (>60 ml/min/1.73 sqM) Glucose (74-99) mg/dL Calcium (8.4-10.2) mg/dL Magnesium (1.6-2.3) mg/dL Total Bilirubin (0.2-1.3) mg/dL AST (17-59) U/L ALT (4-49) U/L Alkaline Phosphatase (38-126) U/L Troponin I <0.012 (0.000-0.034) ng/mL Total Protein (6.3-8.2) g/dL Albumin (3.5-5.0) g/dL TSH (0.465-4.680) mIU/L - EKG Data -: EKG Interpreted by Me - Radiology Data Radiology results: report reviewed (X-rays negative for acute disease), image reviewed Disposition Clinical Impression: Dizziness, Palpitations, Weakness Disposition: HOME SELF-CARE Condition: Good Instructions (If sedation given, give patient instructions): Heart Palpitations (ED), Weakness (ED) Is patient prescribed a controlled substance at d/c from ED?: No Referrals: [facility],Clinic [Primary Care Provider] - 1-2 days Time of Disposition: 22:40
[2023-06-26 23:13] VITALS: BP 134/78; PULSE 64; RESP 18; TEMP 98
== END 2023-06-26 22:53 | disposition home or self-care (01) ==
LOC: EC 20:32
DX: R00.2 Palpitations (principal); R42 Dizziness and giddiness; R53.1 Weakness; F17.200 Nicotine dependence, unspecified, uncomplicated; Z88.5 Allergy status to narcotic agent; Z88.8 Allergy status to other drugs, medicaments and biological substances
CPT/HCPCS: 36415; 71046; 80053; 83735; 84443; 84484; 85025; 85610; 85730; 99285